=== PATIENT | female | born 1950 | race Hispanic/Latino ===

== ENCOUNTER 2018-02-24 22:38 | Inpatient (IN) | payer BC, MEDICARE, OTHER ==
[2018-02-24 22:41] VITALS: BMI 31.6
[2018-02-24] MEDS ORDERED: Nitroglycerin 50mg in D5W 50 MG/250 ML BOTTLE IV PRN (22:42)
[2018-02-24] MEDS ORDERED: Morphine 2 mg/ml ISec IVP STA ×2 (22:48→22:52)
[2018-02-24 22:51] LABS: BASO # 0.05 K/mm3 (0.0-2.0); BASO % 0.4 % (0.0-3.0); EOS # 0.2 (0.0-0.7); EOS % 1.3 % (1.5-5.0); GRAN # 3.76 (1.4-6.5); GRAN % 32.8 % (50.0-68.0); HEMOGLOBIN 16.1 g/dL (12.0-16.0); LYMPH # 6.7 (1.2-3.4); LYMPH % 58.4 % (22.0-35.0); MEAN CELL VOLUME 86.6 fl (80.0-105.0); MEAN CORPUSCULAR HEMOGLOBIN 29.1 pg (25.0-35.0); MEAN CORPUSCULAR HGB CONC 33.5 g/dl (31.0-37.0); MEAN PLATELET VOLUME 9.8 fl (7.0-11.0); MONO # 0.8 (0.1-0.6); MONO % 7.1 % (1.0-6.0); RBC 5.54 10^6/uL (3.5-6.1); RED CELL DISTRIBUTION WIDTH 13.2 % (11.5-14.5); WHITE BLOOD COUNT 11.5 10^3/uL (4.5-11.0)
[2018-02-24] MEDS ORDERED: Morphine 2 mg/ml ISec ONE (22:51)
[2018-02-24] MEDS ORDERED: Nitroglycerin 50mg in D5W 50 MG/250 ML BOTTLE IV ONE ×2 (22:52→23:09)
[2018-02-24 22:54] LABS: INR 0.95; PROTHROMBIN TIME 10.8 SECONDS (9.4-12.5)
[2018-02-24 22:59] LABS: ALB/GLOB RATIO 1.4 (1.1-1.8); ALBUMIN 4.5 g/dL (3.0-4.8); ALT/SGPT 39 U/L (7-56); AST/SGOT 36 U/L (14-36); BLOOD UREA NITROGEN 20 mg/dL (7-21); CALCIUM 10.2 mg/dL (8.4-10.5); GFR NON-AFRICAN AMERICAN > 60
[2018-02-24] MEDS ORDERED: Lidocaine 2% Inj (20ml) ONE (23:07)
--- NOTE | 2018-02-24 23:07 | ED PDOC ---
Arrival/HPI - General Chief Complaint: Chest Pain Time Seen by Provider: 02/24/18 22:41 Historian: Patient - Critical Care Critical Care Minutes: 30 minutes - History of Present Illness Narrative History of Present Illness (Text): 02/24/18 23:07 67 year female, who informs past medical history of only hypoglycemia, presents to the emergency department by EMS for possible code heart. Patient began to feel crushing chest discomfort 1 hour prior to arrival. Rhythm strips had shown probable anterior wall ST elevation. Patient was administered aspirin prior to arrival. Upon arrival patient was placed on academic services professional. Patient denies any drug use. Patient denies any Patient denies any fevers, chills, abdominal pain, nausea, vomiting, diarrhea, back pain, or any other complaints. Time/Duration: 1 hour Symptom Onset: Gradual Symptom Course: Unchanged Quality: Tightness Activities at Onset: Light Context: Home Past Medical History - Provider Review Nursing Documentation Reviewed: Yes - Psychiatric Hx Psychophysiologic Disorder: Yes Hx Anxiety: Yes Hx Substance Use: No Family/Social History - Physician Review Nursing Documentation Reviewed: Yes Family/Social History: No Known Family HX Smoking Status: Never Smoked Hx Alcohol Use: No Hx Substance Use: No Allergies/Home Meds Allergies/Adverse Reactions: Allergies azithromycin [From Zithromax Z-Herman] Allergy (Verified 02/24/18 22:42) DIZZINESS Home Medications: Home Meds Medication Instructions Recorded Confirmed RX: Unobtainable 02/24/18 02/24/18 Review of Systems - Physician Review All systems were reviewed & negative as marked: Yes - Review of Systems Constitutional: absent: Fevers, Night Sweats Cardiovascular: Chest Pain Gastrointestinal: absent: Abdominal Pain, Diarrhea, Nausea, Vomiting Endocrine: Diaphoresis Physical Exam Vital Signs Reviewed: Yes Vital Signs Temp Pulse Resp BP Pulse Ox 02/24/18 22:53 97.2 F L 59 L 20 144/61 98 02/24/18 22:44 60 18 136/73 100 Blood Pressure: Normal Pulse: Regular Respiratory Rate: Normal Appearance: Positive for: Well-Appearing, Non-Toxic, Comfortable Pain Distress: None Mental Status: Positive for: Alert and Oriented X 3 - Systems Exam Head: Present: Atraumatic, Normocephalic Pupils: Present: PERRL Extroacular Muscles: Present: EOMI Conjunctiva: Present: Normal Mouth: Present: Moist Mucous Membranes Neck: Present: Normal Range of Motion Respiratory/Chest: Present: Clear to Auscultation, Good Air Exchange. No: Respiratory Distress, Accessory Muscle Use Cardiovascular: Present: Regular Rate and Rhythm, Normal S1, S2. No: Murmurs Abdomen: No: Tenderness, Distention, Peritoneal Signs Back: Present: Normal Inspection Upper Extremity: Present: Normal Inspection. No: Cyanosis, Edema Lower Extremity: Present: Normal Inspection. No: Edema Neurological: Present: GCS=15, CN II-XII Intact, Speech Normal Skin: Present: Warm, Normal Color, Diaphoretic. No: Rashes Psychiatric: Present: Alert, Oriented x 3, Normal Insight, Normal Concentration Medical Decision Making ED Course and Treatment: 02/24/18 23:16 Impression: Differential Diagnosis included but are not limited to: Plan: -- EKG -- Brilinta -- Heparin -- Morphine -- Nitroglycerin -- O2 nasal -- Reassess and disposition Prior Visits: Notes and results from previous visits were reviewed. Progress Notes: 02/24/18 23:18 Patient had stat EKG which showed anterior wall injury with reciprocal changes, code heart was called immediately. Case was discussed with clay press operator recreation aide Dr Ayala. Dr Ayala recommended Brillinta and heparin and will come to hospital to bring patient to cardiac catheterization lab. House physician . is present with the medical doctor md. - Lab Interpretations Lab Results: PT 10.8 SECONDS (9.4-12.5) 02/24/18 22:48 INR 0.95 02/24/18 22:48 Total Bilirubin 0.8 mg/dL (0.2-1.3) 02/24/18 22:48 AST 36 U/L (14-36) 02/24/18 22:48 ALT 39 U/L (7-56) 02/24/18 22:48 Alkaline Phosphatase 106 U/L (38-126) 02/24/18 22:48 Total Protein 7.9 g/dL (5.8-8.3) 02/24/18 22:48 Albumin 4.5 g/dL (3.0-4.8) 02/24/18 22:48 Globulin 3.3 gm/dL 02/24/18 22:48 Albumin/Globulin Ratio 1.4 (1.1-1.8) 02/24/18 22:48 - RAD Interpretation Radiology Orders: 02/24/18 22:42 CHEST PORTABLE [RAD] Stat - Medication Orders Current Medication Orders: Nitroglycerin/Dextrose (Nitroglycerin 50 Mg/250 Ml D5w) 50 mg in 250 mls @ 3 mls/hr IV .Q24H PRN; Protocol PRN Reason: Pain, moderate (4-7) Discontinued Medications Heparin Sodium (Porcine) (Heparin) 4,000 units IV ONCE STA; Protocol Stop: 02/24/18 22:43 Morphine Sulfate (Morphine) 2 mg IVP STAT STA Stop: 02/24/18 22:49 Morphine Sulfate (Morphine) 2 mg IVP STAT STA Stop: 02/24/18 22:53 Ticagrelor (Brilinta) 180 mg PO STAT STA Stop: 02/24/18 22:51 - Scribe Statement The provider has reviewed the documentation as recorded by the Scribe Kofi Serrano Provider Scribe Attestation: All medical record entries made by the Scribe were at my direction and personally dictated by me. I have reviewed the chart and agree that the record accurately reflects my personal performance of the history, physical exam, medical decision making, and the department course for this patient. I have also personally directed, reviewed, and agree with the discharge instructions and disposition. Disposition/Present on Arrival - Present on Arrival Any Indicators Present on Arrival: No History of DVT/PE: No History of Uncontrolled Diabetes: No Urinary Catheter: No History of Decub. Ulcer: No History Surgical Site Infection Following: None - Disposition Have Diagnosis and Disposition been Completed?: Yes Diagnosis: Acute [place], STEMI (ST elevation myocardial infarction) Disposition: HOSPITALIZED Disposition Time: 22:58 Patient Plan: ICU Patient Problems: Current Active Problems Problem Status Onset Acute [place] Acute STEMI (ST elevation myocardial infarction) Acute Condition: GUARDED
[2018-02-24] MEDS ORDERED: Midazolam 2 MG/2 ML VIAL ONE ×2 (23:08→23:35)
[2018-02-24] MEDS ORDERED: Phenylephrine 10 mg/ml Inj ONE (23:08)
[2018-02-24] MEDS ORDERED: Iodixanol 320 MG/ML 100 ML BOTTLE IV ONE (23:09)
[2018-02-24] MEDS ORDERED: Heparin 2,000 ML IV ONE (23:09)
[2018-02-24] MEDS ORDERED: Iodixanol 320 MG/ML 200 ML BOTTLE IV ONE (23:09)
[2018-02-24] MEDS ORDERED: Iohexol 350mgl/ml 50 ML ONE (23:09)
[2018-02-24 23:11] LABS: TROPONIN I 0.02 ng/mL
--- NOTE | 2018-02-24 23:24 | CP.PCM.HP ---
<Liza Aponte - Last Filed: 02/25/18 00:22> History of Present Illness - History of Present Illness History of Present Illness: Please note patient's history is as per daughter as well as patient in acute distress at time of encounter Daughter: Teena : Maikel 67yo female PMHx hypoglycemia and anxiety BIBA with complaint of chest pain for 1 day worsening 1 hour prior to arrival to the ER. Patient's daughter reported the patient was complaining of mild URI symptoms the night prior for which she took Nyquil and Augmentin [left over from a nail infection]. Patient's continued to complain of some neck and throat pain throughout the day of admission and intermittent chest pain. The chest pain became significantly worse 1 hour DATA CENTER ENGINEER and patient reported feeling like there was an "elephant on her chest". Patient rated the pain 10/10 and described it as a heavy weight in the middle of her chest radiating up her neck. She had associated nausea with no emesis and was diaphoretic. EMS was called and patient took 4 pills of baby ASA prior to coming to the ER. Complete ROS unobtainable secondary to patient condition. In the ER stat EKG revealed anterior wall TX with reciprocal changes. Code HEART was called and team was activated. Cardiology Dr. Ayala recommended Brilinta 180mg and Heparin bolus 4000units. Patient was also given Morphine 2mg and started on Nitro gtt and rushed to nitriles lab technician. PMHx: hypoglycemia and anxiety PSurgHx: cholecystectomy 43years ago PHospitalization: none PER: for panic attack Meds: xanax 0.5 prn qd ALL: azithromycin FamHx: father [place] in his 60s; mother with skin cancer and hypothyroidism SocHx: remote tobacco use as a teenager; denies EtOH/drug use. Lives at home with . PMD: Kushal Present on Admission - Present on Admission Any Indicators Present on Admission: No Review of Systems - Review of Systems Systems not reviewed;Unavailable: Acuity of Condition Past Patient History - Past Social History Smoking Status: Never Smoked - PSYCHIATRIC Hx Psychophysiologic Disorder: Yes Hx Anxiety: Yes Hx Substance Use: No Meds Allergies/Adverse Reactions: Allergies Allergy/AdvReac Type Severity Reaction Status Date / Time azithromycin Allergy DIZZINESS Verified 02/24/18 22:42 [From Zithromax Z-Herman] Physical Exam - Constitutional Appears: In Acute Distress - Head Exam Head Exam: ATRAUMATIC, NORMAL INSPECTION, NORMOCEPHALIC - Eye Exam Eye Exam: EOMI, Normal appearance. absent: Conjunctival injection, Scleral icterus - ENT Exam ENT Exam: Mucous Membranes Dry - Respiratory Exam Respiratory Exam: NORMAL BREATHING PATTERN. absent: Accessory Muscle Use, Rales, Rhonchi, Wheezes, Respiratory Distress - Cardiovascular Exam Cardiovascular Exam: REGULAR RHYTHM, +S1, +S2 - GI/Abdominal Exam GI & Abdominal Exam: Soft. absent: Firm, Guarding, Rigid, Tenderness - Rectal Exam Rectal Exam: Deferred ( ) - Extremities Exam Extremities exam: Positive for: pedal pulses present. Negative for: pedal edema Additional comments: varicose veins b/l LE noted - Neurological Exam Neurological exam: Alert, Oriented x3 - Psychiatric Exam Psychiatric exam: Anxious - Skin Skin Exam: Diaphoretic, Intact Results - Vital Signs Recent Vital Signs: Last Vital Signs Temp 97.2 F L 02/24/18 22:53 Pulse 59 L 02/24/18 22:53 Resp 20 02/24/18 22:53 BP 144/61 02/24/18 22:53 Pulse Ox 98 02/24/18 22:53 - Labs Result Diagrams: 02/24/18 22:48 02/24/18 22:48 Labs: Laboratory Results - last 24 hr 02/24/18 02/24/18 02/24/18 22:48 22:48 22:48 WBC 11.5 H RBC 5.54 Hgb 16.1 H Hct 48.0 MCV 86.6 MCH 29.1 MCHC 33.5 RDW 13.2 Plt Count 246 MPV 9.8 Gran % 32.8 L Lymph % (Auto) 58.[address] [place] % (Auto) 7.1 H Eos % (Auto) 1.3 L Baso % (Auto) 0.4 Gran # 3.76 Lymph # (Auto) 6.[address] [place] # (Auto) 0.8 H Eos # (Auto) 0.2 Baso # (Auto) 0.05 PT 10.8 INR 0.95 Sodium 142 Potassium 3.3 L Chloride 106 Carbon Dioxide 26 Anion Gap 14 BUN 20 Creatinine 0.9 Est GFR ( Amer) > 60 Est GFR (Non-Af Amer) > 60 Random Glucose 122 H Calcium 10.2 Total Bilirubin 0.8 AST 36 ALT 39 Alkaline Phosphatase 106 Lactate Dehydrogenase 504 Total Creatine Kinase 40 Troponin I 0.02 Total Protein 7.9 Albumin 4.5 Globulin 3.3 Albumin/Globulin Ratio 1.4 Assessment & Plan - Assessment and Plan (Free Text) Assessment: 67yo female PMHx hypoglycemia and anxiety BIBA with complaint of chest pain for 1 day worsening 1 hour DATA CENTER ENGINEER. In the ER patient's EKG revealed anterior wall TX with reciprocal changes. Code HEART called and patient was rushed to [facility] lab technician. Patient had 2 JANE placed in LAD. Patient transferred to CCU for further management. Plan: Prior to cath patient received ASA 324mg, Brilinta 180mg, Heparin 4000units, Mo rphine 2mg and started on Nitro gtt. Postcath patient to be monitored closely in CCU. Patient started on ASA 81mg, Lipitor 80mg, Coreg 6.25mg bid, and Brilinta 90mg bid as per cardio. AM labs ordered for CBC, CMP, Mg, Phos, Lipid panel, HgbA1c, Thyroid studies. Echo ordered to f/u. Leukocytosis noted- likely reactionary. Will monitor cath site and b/l LE distal pulses. Continue NS@100 and Heart Healthy Diet ordered for AM. Patient's family was spoken to in great detail and all questions and concerns were addressed. Discussed with Dr. Mari Aponte PGY3 <Blair Guerra - Last Filed: 02/25/18 06:49> Results - Vital Signs Recent Vital Signs: Last Vital Signs Temp 968.3 F H 02/25/18 01:56 Pulse 88 02/25/18 02:00 Resp 13 02/25/18 01:20 BP 123/73 02/25/18 01:00 Pulse Ox 97 02/25/18 01:20 - Labs Result Diagrams: 02/25/18 05:25 02/24/18 22:48 Labs: Laboratory Results - last 24 hr 02/24/18 02/24/18 02/24/18 22:48 22:48 22:48 WBC 11.5 H RBC 5.54 Hgb 16.1 H Hct 48.0 MCV 86.6 MCH 29.1 MCHC 33.5 RDW 13.2 Plt Count 246 MPV 9.8 Gran % 32.8 L Lymph % (Auto) 58.[address] [place] % (Auto) 7.1 H Eos % (Auto) 1.3 L Baso % (Auto) 0.4 Gran # 3.76 Lymph # (Auto) 6.[address] [place] # (Auto) 0.8 H Eos # (Auto) 0.2 Baso # (Auto) 0.05 PT 10.8 INR 0.95 Sodium 142 Potassium 3.3 L Chloride 106 Carbon Dioxide 26 Anion Gap 14 BUN 20 Creatinine 0.9 Est GFR ( Amer) > 60 Est GFR (Non-Af Amer) > 60 Random Glucose 122 H Calcium 10.2 Total Bilirubin 0.8 AST 36 ALT 39 Alkaline Phosphatase 106 Lactate Dehydrogenase 504 Total Creatine Kinase 40 Troponin I 0.02 Total Protein 7.9 Albumin 4.5 Globulin 3.3 Albumin/Globulin Ratio 1.4 02/25/18 05:25 WBC 10.6 RBC 5.05 Hgb 14.3 Hct 44.1 MCV 87.3 MCH 28.3 MCHC 32.4 RDW 13.5 Plt Count 213 MPV 9.9 Gran % 87.2 H Lymph % (Auto) 7.[address] [place] % (Auto) 5.4 Eos % (Auto) 0.1 L Baso % (Auto) 0.1 Gran # 9.27 H Lymph # (Auto) 0.[address] [place] # (Auto) 0.6 Eos # (Auto) 0.0 Baso # (Auto) 0.01 PT INR Sodium Potassium Chloride Carbon Dioxide Anion Gap BUN Creatinine Est GFR ( Amer) Est GFR (Non-Af Amer) Random Glucose Calcium Total Bilirubin AST ALT Alkaline Phosphatase Lactate Dehydrogenase Total Creatine Kinase Troponin I Total Protein Albumin Globulin Albumin/Globulin Ratio Attending/Attestation - Attestation I have personally seen and examined this patient.: Yes I have fully participated in the care of the patient.: Yes I have reviewed all pertinent clinical information: Yes
[2018-02-24] MEDS ORDERED: Eptifibatide 20 mg/10mL Inj IVP ONE ×2 (23:51→23:59)
[2018-02-25] MEDS ORDERED: Sodium Chloride 0.9% 1,000 ML IV SCH ×3 (00:15→14:52)
[2018-02-25] MEDS ORDERED: Potassium Chloride 20 mEq ER Tab PO ONE (02:34)
--- NOTE | 2018-02-25 02:45 | CARDCATH ---
PROCEDURE DATE: 02/24/2018 CARDIAC CATHETERIZATION INTERVENTION REPORT PROCEDURES: 1. Selective left and right coronary angiography. 2. Left ventriculography. 3. PCI of proximal LAD with drug-eluting stents. 4. Intracoronary nitroglycerin infusion. 5. Right femoral arteriography. 6. Angio-Seal deployment. HISTORY: This is a 67-year-old woman with a history of hyperlipidemia, who developed severe chest pain shortly before admission. Upon arrival, she had ST elevations anteriorly and emergency catheterization was advised. INDICATION: Acute myocardial infarction. FINDINGS: HEMODYNAMICS: Aortic pressure was 120/70 with left ventricular pressure of 120/20. CORONARY ANATOMY: 1. Left mainstem was normal. 2. Left anterior descending artery was occluded proximally. 3. The left circumflex artery had diffuse 40% stenosis in its proximal mid segment. 4. The right coronary artery was large and dominant with mild irregularities. LEFT VENTRICULOGRAPHY: A hand injection was performed in the left ventricle revealing evidence of severe distal anterolateral and apical hypokinesis with an overall ejection fraction of 45%. CORONARY INTERVENTION: A total of 7000 units of intravenous heparin was administered and AST was greater than 280 seconds during the procedure. The lesion in the LAD was successfully crossed with use of a [place] wire. Following this, intial balloon inflation was performed with a 2.5 x 12 mm balloon. With this, there was roman catholic of distal flow. There was evidence of diffuse disease throughout the mid-segment of the vessel. The balloon was removed and a 3.0 x 15 m Resolute [place] drug-eluting stent was advanced into the early mid-segment of the LAD. This was inflated to 14 atmospheres. Following this, the remainder residual lesion was just proximal to the stent and this was treated with placement of a 3.5 x 12 mm Resolute [place] drug-eluting stent. This was inflated to 14 atmospheres. The balloon was then advanced into the overlapped segment of the two stents and this was inflated at 16 atmospheres for 30 seconds. The previous inflations were 40-45 seconds. Intracoronary nitroglycerin was infused as the lesions in the mid-vessel appeared somewhat worsened after initial stent implant. Following nitroglycerin, there appeared to be multiple 40-50% lesions with no evidence of thrombus or high-grade obstructive stenosis. Two boluses of IV Integrilin were administered. RIGHT FEMORAL ARTERIOGRAPHY: Right femoral arteriogram was performed in the TAMAYO projection. This revealed no evidence of significant disease and appropriate level of arterial puncture. The puncture site was then closed with deployment of an Angio-Seal device. CONCLUSIONS: 1. Acute anterior myocardial infarction due to proximal left anterior descending occlusion associated with drug-eluting stent placement as described above. 2. 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 3. Moderately reduced left ventricular systolic function. RECOMMENDATIONS: Aspirin and Brilinta therapy will be continued for at least 1 year. Beta-ling and statin therapy will be initiated as well. Angiotensin receptor ling will be added to the regimen as blood pressure allows. Serial enzymes and electrocardiograms will be obtained. Richy Melgoza MD cc: Brenda Fatima MD MTDD
[2018-02-25 06:43] LABS: BASO # 0.01 K/mm3 (0.0-2.0); BASO % 0.1 % (0.0-3.0); EOS % 0.1 % (1.5-5.0); GRAN # 9.27 (1.4-6.5); GRAN % 87.2 % (50.0-68.0); HEMOGLOBIN 14.3 g/dL (12.0-16.0); LYMPH # 0.8 (1.2-3.4); LYMPH % 7.2 % (22.0-35.0); MEAN CELL VOLUME 87.3 fl (80.0-105.0); MEAN CORPUSCULAR HEMOGLOBIN 28.3 pg (25.0-35.0); MEAN CORPUSCULAR HGB CONC 32.4 g/dl (31.0-37.0); MEAN PLATELET VOLUME 9.9 fl (7.0-11.0); MONO # 0.6 (0.1-0.6); MONO % 5.4 % (1.0-6.0); RBC 5.05 10^6/uL (3.5-6.1); RED CELL DISTRIBUTION WIDTH 13.5 % (11.5-14.5); WHITE BLOOD COUNT 10.6 10^3/uL (4.5-11.0)
[2018-02-25 06:51] LABS: ALB/GLOB RATIO 1.4 (1.1-1.8); ALBUMIN 4.3 g/dL (3.0-4.8); ALT/SGPT 111 U/L (7-56); AST/SGOT 617 U/L (14-36); BLOOD UREA NITROGEN 18 mg/dL (7-21); CALCIUM 9.5 mg/dL (8.4-10.5); GFR NON-AFRICAN AMERICAN > 60; HDL CHOLESTEROL 46 mg/dL (29-60)
[2018-02-25 06:55] LABS: LDL CHOLESTEROL 132 mg/dL (0-129)
[2018-02-25 07:01] LABS: FREE T4 1.09 ng/dL (0.78-2.19)
--- NOTE | 2018-02-25 10:06 | CP.CCUPN ---
<Kevin Haley - Last Filed: 02/25/18 11:54> CCU Subjective - Physician Review Subjective (Free Text): 02/25/18 11:41 Genaro Haley PGY2 - ICU Progress Note Patient seen and examined this AM. Patient indicates mild chest discomfort periodically and nausea. She reports minimal pain at cath site. She denies shortness of breath, abdominal pain, fever, chills, vomiting. Patient to be moved to chair today. CCU Objective - Vital Signs / Intake & Output Vital Signs (Last 4 hours): Vital Signs Temp Pulse Resp BP Pulse Ox 02/25/18 09:30 87 129/74 02/25/18 09:00 91 H 15 95 02/25/18 08:11 97.5 F L 02/25/18 08:01 95 H 20 139/94 H 93 L 02/25/18 08:00 7 L 92 L 02/25/18 07:50 84 95 02/25/18 07:45 89 20 146/81 93 L 02/25/18 07:40 95 H 19 95 02/25/18 07:31 89 20 143/85 95 02/25/18 07:30 88 93 L 02/25/18 07:20 87 19 95 02/25/18 07:16 88 16 141/84 96 02/25/18 07:10 88 6 L 95 02/25/18 07:00 88 16 140/79 95 02/25/18 06:50 89 19 95 02/25/18 06:45 85 21 143/81 95 02/25/18 06:40 89 12 95 02/25/18 06:31 93 H 12 143/86 96 02/25/18 06:30 88 18 96 02/25/18 06:20 88 19 95 02/25/18 06:16 87 16 143/84 96 02/25/18 06:10 87 96 Intake and Output (Last 8hrs): Intake & Output 02/24/18 02/25/18 02/25/18 22:59 06:59 14:59 Intake Total 600 Output Total 800 Balance -200 Weight 195 lb 12.8 oz 195 lb 12.8 oz Intake: IV 600 Right Forearm 600 Output: Urine 800 Urine, Voided 800 - Physical Exam Head: Positive for: Atraumatic, Normocephalic Pupils: Positive for: PERRL Extroacular Muscles: Positive for: EOMI Conjunctiva: Positive for: Normal Mouth: Positive for: Moist Mucous Membranes Neck: Positive for: Normal Range of Motion Respiratory/Chest: Positive for: Clear to Auscultation, Good Air Exchange. Negative for: Respiratory Distress, Accessory Muscle Use Cardiovascular: Positive for: Regular Rate and Rhythm, Normal S1, S2. Negative for: Murmurs Abdomen: Negative for: Tenderness, Distention, Peritoneal Signs Back: Positive for: Normal Inspection Upper Extremity: Positive for: Normal Inspection. Negative for: Cyanosis, Edema Lower Extremity: Positive for: Normal Inspection, Tenderness (mild around cath site ), Other (right lower extremity groin region without hematoma, swelling and minimal ecchymosis, ). Negative for: Edema Neurological: Positive for: GCS=15, CN II-XII Intact, Speech Normal Skin: Positive for: Warm, Normal Color, Diaphoretic. Negative for: Rashes Psychiatric: Positive for: Alert, Oriented x 3, Normal Insight, Normal Concentration - Medications Active Medications: Active Medications Generic Name Dose Route Start Last Admin Trade Name Freq PRN Reason Stop Dose Admin Aspirin 81 mg 02/25/18 10:02/25/18 09:31 Aspirin Chewable PO 81 mg DAILY CHERELLE Administration Atorvastatin Calcium 80 mg 02/25/18 17:00 Lipitor PO DIN CHERELLE Carvedilol 6.25 mg 02/25/18 10:00 02/25/18 09:30 Coreg PO 6.25 mg BID CHERELLE Administration Docusate Sodium 100 mg 02/25/18 10:00 02/25/18 09:29 Colace PO 100 mg BID CHERELLE Administration Nitroglycerin/Dextrose 50 mg in 250 mls @ 3 mls/hr 02/24/18 22:42 02/24/18 23:51 Nitroglycerin 50 Mg/250 Ml D5w IV 10 mcg/min .Q24H PRN 3 mls/hr Pain, moderate (4-7) Administration Protocol 10 MCG/MIN Ondansetron HCl 4 mg 02/25/18 07:47 02/25/18 07:58 Zofran Inj IVP 4 mg Q6H PRN Administration Nausea/Vomiting Ticagrelor 90 mg 02/25/18 10:00 02/25/18 09:29 Brilinta PO 90 mg BID CHERELLE Administration - Patient Studies Lab Studies: Lab Studies 02/25/18 02/25/18 02/25/18 Range/Units 05:25 05:25 05:25 WBC 10.6 (4.5-11.0) 10^3/uL RBC 5.05 (3.5-6.1) 10^6/uL Hgb 14.3 (12.0-16.0) g/dL Hct 44.1 (36.0-48.0) % MCV 87.3 (80.0-105.0) fl MCH 28.3 (25.0-35.0) pg MCHC 32.4 (31.0-37.0) g/dl RDW 13.5 (11.5-14.5) % Plt Count 213 (120.0-450.0) 10^3/uL MPV 9.9 (7.0-11.0) fl Gran % 87.2 H (50.0-68.0) % Lymph % (Auto) 7.2 L (22.0-35.0) % Webster % (Auto) 5.4 (1.0-6.0) % Eos % (Auto) 0.1 L (1.5-5.0) % Baso % (Auto) 0.1 (0.0-3.0) % Gran # 9.27 H (1.4-6.5) Lymph # (Auto) 0.8 L (1.2-3.4) Webster # (Auto) 0.6 (0.1-0.6) Eos # (Auto) 0.0 (0.0-0.7) Baso # (Auto) 0.01 (0.0-2.0) K/mm3 PT (9.4-12.5) SECONDS INR Sodium 141 (132-148) mmol/L Potassium 5.1 H (3.6-5.0) mmol/L Chloride 107 (98-107) mmol/L Carbon Dioxide 29 (21-33) mmol/L Anion Gap 10 (10-20) BUN 18 (7-21) mg/dL Creatinine 0.8 (0.7-1.2) mg/dl Est GFR ( Amer) > 60 Est GFR (Non-Af Amer) > 60 Random Glucose 136 H (70-110) mg/dL Calcium 9.5 (8.4-10.5) mg/dL Phosphorus 3.3 (2.5-4.5) mg/dL Magnesium 2.1 (1.7-2.2) mg/dL Total Bilirubin 0.6 (0.2-1.3) mg/dL AST 617 H D (14-36) U/L ALT 111 H (7-56) U/L Alkaline Phosphatase 90 (38-126) U/L Lactate Dehydrogenase (333-699) U/L Total Creatine Kinase (35-230) U/L Troponin I ng/mL Total Protein 7.5 (5.8-8.3) g/dL Albumin 4.3 (3.0-4.8) g/dL Globulin 3.2 gm/dL Albumin/Globulin Ratio 1.4 (1.1-1.8) Triglycerides 224 H (35-160) mg/dL Cholesterol 229 H (130-200) mg/dL LDL Cholesterol Direct 132 H (0-129) mg/dL HDL Cholesterol 46 (29-60) mg/dL Free T4 1.09 (0.78-2.19) ng/dL TSH 3rd Generation 1.01 (0.46-4.68) mIU/mL 02/24/18 02/24/18 02/24/18 Range/Units 22:48 22:48 22:48 WBC 11.5 H (4.5-11.0) 10^3/uL RBC 5.54 (3.5-6.1) 10^6/uL Hgb 16.1 H (12.0-16.0) g/dL Hct 48.0 (36.0-48.0) % MCV 86.6 (80.0-105.0) fl MCH 29.1 (25.0-35.0) pg MCHC 33.5 (31.0-37.0) g/dl RDW 13.2 (11.5-14.5) % Plt Count 246 (120.0-450.0) 10^3/uL MPV 9.8 (7.0-11.0) fl Gran % 32.8 L (50.0-68.0) % Lymph % (Auto) 58.4 H (22.0-35.0) % Webster % (Auto) 7.1 H (1.0-6.0) % Eos % (Auto) 1.3 L (1.5-5.0) % Baso % (Auto) 0.4 (0.0-3.0) % Gran # 3.76 (1.4-6.5) Lymph # (Auto) 6.7 H (1.2-3.4) Webster # (Auto) 0.8 H (0.1-0.6) Eos # (Auto) 0.2 (0.0-0.7) Baso # (Auto) 0.05 (0.0-2.0) K/mm3 PT 10.8 (9.4-12.5) SECONDS INR 0.95 Sodium 142 (132-148) mmol/L Potassium 3.3 L (3.6-5.0) mmol/L Chloride 106 (98-107) mmol/L Carbon Dioxide 26 (21-33) mmol/L Anion Gap 14 (10-20) BUN 20 (7-21) mg/dL Creatinine 0.9 (0.7-1.2) mg/dl Est GFR ( Amer) > 60 Est GFR (Non-Af Amer) > 60 Random Glucose 122 H (70-110) mg/dL Calcium 10.2 (8.4-10.5) mg/dL Phosphorus (2.5-4.5) mg/dL Magnesium (1.7-2.2) mg/dL Total Bilirubin 0.8 (0.2-1.3) mg/dL AST 36 (14-36) U/L ALT 39 (7-56) U/L Alkaline Phosphatase 106 (38-126) U/L Lactate Dehydrogenase 504 (333-699) U/L Total Creatine Kinase 40 (35-230) U/L Troponin I 0.02 ng/mL Total Protein 7.9 (5.8-8.3) g/dL Albumin 4.5 (3.0-4.8) g/dL Globulin 3.3 gm/dL Albumin/Globulin Ratio 1.4 (1.1-1.8) Triglycerides (35-160) mg/dL Cholesterol (130-200) mg/dL LDL Cholesterol Direct (0-129) mg/dL HDL Cholesterol (29-60) mg/dL Free T4 (0.78-2.19) ng/dL TSH 3rd Generation (0.46-4.68) mIU/mL Laboratory Results - last 24 hr 02/24/18 02/24/18 02/24/18 22:48 22:48 22:48 WBC 11.5 H RBC 5.54 Hgb 16.1 H Hct 48.0 MCV 86.6 MCH 29.1 MCHC 33.5 RDW 13.2 Plt Count 246 MPV 9.8 Gran % 32.8 L Lymph % (Auto) 58.4 H Webster % (Auto) 7.1 H Eos % (Auto) 1.3 L Baso % (Auto) 0.4 Gran # 3.76 Lymph # (Auto) 6.7 H Webster # (Auto) 0.8 H Eos # (Auto) 0.2 Baso # (Auto) 0.05 PT 10.8 INR 0.95 Sodium 142 Potassium 3.3 L Chloride 106 Carbon Dioxide 26 Anion Gap 14 BUN 20 Creatinine 0.9 Est GFR ( Amer) > 60 Est GFR (Non-Af Amer) > 60 Random Glucose 122 H Calcium 10.2 Phosphorus Magnesium Total Bilirubin 0.8 AST 36 ALT 39 Alkaline Phosphatase 106 Lactate Dehydrogenase 504 Total Creatine Kinase 40 Troponin I 0.02 Total Protein 7.9 Albumin 4.5 Globulin 3.3 Albumin/Globulin Ratio 1.4 Triglycerides Cholesterol LDL Cholesterol Direct HDL Cholesterol Free T4 TSH 3rd Generation 02/25/18 02/25/18 02/25/18 05:25 05:25 05:25 WBC 10.6 RBC 5.05 Hgb 14.3 Hct 44.1 MCV 87.3 MCH 28.3 MCHC 32.4 RDW 13.5 Plt Count 213 MPV 9.9 Gran % 87.2 H Lymph % (Auto) 7.2 L Webster % (Auto) 5.4 Eos % (Auto) 0.1 L Baso % (Auto) 0.1 Gran # 9.27 H Lymph # (Auto) 0.8 L Webster # (Auto) 0.6 Eos # (Auto) 0.0 Baso # (Auto) 0.01 PT INR Sodium 141 Potassium 5.1 H Chloride 107 Carbon Dioxide 29 Anion Gap 10 BUN 18 Creatinine 0.8 Est GFR ( Amer) > 60 Est GFR (Non-Af Amer) > 60 Random Glucose 136 H Calcium 9.5 Phosphorus 3.3 Magnesium 2.1 Total Bilirubin 0.6 AST 617 H D ALT 111 H Alkaline Phosphatase 90 Lactate Dehydrogenase Total Creatine Kinase Troponin I Total Protein 7.5 Albumin 4.3 Globulin 3.2 Albumin/Globulin Ratio 1.4 Triglycerides 224 H Cholesterol 229 H LDL Cholesterol Direct 132 H HDL Cholesterol 46 Free T4 1.09 TSH 3rd Generation 1.01 EKG/Cardiology Studies: Cardiology / EKG Studies 02/24/18 22:42 ELECTROCARDIOGRAM Stat Comment: Reason For Exam: chest pain 02/24/18 23:03 ELECTROCARDIOGRAM Stat Comment: Reason For Exam: chest pain 02/25/18 00:11 ELECTROCARDIOGRAM Urgent Comment: 12 lead EKG upon arrival in unit Reason For Exam: post ptca 02/25/18 00:15 ELECTROCARDIOGRAM DAILY Comment: Reason For Exam: chest pain 02/26/18 00:15 ELECTROCARDIOGRAM DAILY Comment: Reason For Exam: chest pain Review of Systems - Review of Systems All systems: reviewed and no additional remarkable complaints except (as mentioned in HPI) Critical Care Progress Note - Nutrition Nutrition: Nutrition Category Date Time Status Heart Healthy Diet [DIET] Diets 02/25/18 Breakfast Active Assessment/Plan - Assessment and Plan (Free Text) Assessment: 67 year old female with past medical history of hypoglycemia and anxiety who presented with severe chest pain 1 hour in onset, admitted and taken for LHC with Dr. 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 Plan: Neuro: AAOx3 Monitor mentation Cardio: Acute anterior KS -LHC showing LAD and LCA disease, PCIx2 of LAD -EF 45% -ASA, Brillinta, coreg BID, Lipitor -CLYDE or ARB as tolerated -Cardiology consulted and following HLD (TG 224, CH 220, LDL 132) -Lipitor -HHD Pulm: -Maintain SaO2 >92% -Supplemental O2 as needed Renal: -Maintain euvolemia, replete electrolytes as needed Episode of urinary retention -Straight cath once with 700 mL UOP -Cont to monitor GI: Elevated LFT s/p cath -AST 617 ALT 111 -LFT wnl on admission -Etiology possibly secondary to hypovolemic 2/2 acute KS -IV zofran 4mg Q6H PRN -GI ppx -HHD ID: Afebrile, mild leukocytosis likely stress related Psych: Anxiety -Continue to monitor GI/DVT ppx -Protonix -Heparin Patient seen, case and plan discussed with attending Dr. Pedraza <Noris Pedraza - Last Filed: 02/25/18 18:04> CCU Objective - Vital Signs / Intake & Output Vital Signs (Last 4 hours): Vital Signs Temp Pulse Resp BP Pulse Ox 02/25/18 17:14 83 146/75 02/25/18 16:01 77 17 153/86 H 97 02/25/18 16:00 97.7 F 74 17 97 02/25/18 15:01 78 19 159/77 H 97 02/25/18 15:00 76 19 95 Intake and Output (Last 8hrs): Intake & Output 02/25/18 02/25/18 02/25/18 06:59 14:59 22:59 Intake Total 600 Output Total 800 Balance -200 Weight 88.813 kg Intake: IV 600 Right Forearm 600 Output: Urine 800 Urine, Voided 800 - Medications Active Medications: Active Medications Generic Name Dose Route Start Last Admin Trade Name Freq PRN Reason Stop Dose Admin Aspirin 81 mg 02/25/18 10:00 02/25/18 09:31 Aspirin Chewable PO 81 mg DAILY CHERELLE Administration Atorvastatin Calcium 80 mg 02/25/18 17:00 Lipitor PO DIN CHERELLE Carvedilol 6.25 mg 02/25/18 10:00 02/25/18 17:14 Coreg PO 6.25 mg BID CHERELLE Administration Docusate Sodium 100 mg 02/25/18 10:00 02/25/18 17:14 Colace PO 100 mg BID CHERELLE Administration Famotidine 20 mg 02/26/18 10:00 Pepcid IVP DAILY CHERELLE Nitroglycerin/Dextrose 50 mg in 250 mls @ 3 mls/hr 02/24/18 22:42 02/24/18 23:51 Nitroglycerin 50 Mg/250 Ml D5w IV 10 mcg/min .Q24H PRN 3 mls/hr Pain, moderate (4-7) Administration Protocol 10 MCG/MIN Sodium Chloride 1,000 mls @ 75 mls/hr 02/25/18 14:52 02/25/18 14:15 Sodium Chloride 0.9% IV 02/25/18 23:00 75 mls/hr .[id number] CHERELLE Administration Ondansetron HCl 4 mg 02/25/18 18:00 02/25/18 17:18 Zofran Inj IVP 4 mg Q6H PRN Administration Nausea/Vomiting Ticagrelor 90 mg 02/25/18 10:00 02/25/18 17:14 Brilinta PO 90 mg BID CHERELLE Administration - Patient Studies Lab Studies: Lab Studies 02/25/18 02/25/18 02/25/18 Range/Units 13:00 05:25 05:25 WBC (4.5-11.0) 10^3/uL RBC (3.5-6.1) 10^6/uL Hgb (12.0-16.0) g/dL Hct (36.0-48.0) % MCV (80.0-105.0) fl MCH (25.0-35.0) pg MCHC (31.0-37.0) g/dl RDW (11.5-14.5) % Plt Count (120.0-450.0) 10^3/uL MPV (7.0-11.0) fl Gran % (50.0-68.0) % Lymph % (Auto) (22.0-35.0) % Webster % (Auto) (1.0-6.0) % Eos % (Auto) (1.5-5.0) % Baso % (Auto) (0.0-3.0) % Gran # (1.4-6.5) Lymph # (Auto) (1.2-3.4) Webster # (Auto) (0.1-0.6) Eos # (Auto) (0.0-0.7) Baso # (Auto) (0.0-2.0) K/mm3 PT (9.4-12.5) SECONDS INR Sodium (132-148) mmol/L Potassium (3.6-5.0) mmol/L Chloride (98-107) mmol/L Carbon Dioxide (21-33) mmol/L Anion Gap (10-20) BUN (7-21) mg/dL Creatinine (0.7-1.2) mg/dl Est GFR ( Amer) Est GFR (Non-Af Amer) Random Glucose (70-110) mg/dL Hemoglobin A1c 5.3 (4.2-6.5) % Calcium (8.4-10.5) mg/dL Phosphorus (2.5-4.5) mg/dL Magnesium (1.7-2.2) mg/dL Total Bilirubin (0.2-1.3) mg/dL AST (14-36) U/L ALT (7-56) U/L Alkaline Phosphatase (38-126) U/L Lactate Dehydrogenase (333-699) U/L Total Creatine Kinase (35-230) U/L Troponin I 107.00 H* D ng/mL Total Protein (5.8-8.3) g/dL Albumin (3.0-4.8) g/dL Globulin gm/dL Albumin/Globulin Ratio (1.1-1.8) Triglycerides (35-160) mg/dL Cholesterol (130-200) mg/dL LDL Cholesterol Direct (0-129) mg/dL HDL Cholesterol (29-60) mg/dL Free T4 1.09 (0.78-2.19) ng/dL TSH 3rd Generation 1.01 (0.46-4.68) mIU/mL 02/25/18 02/25/18 02/24/18 Range/Units 05:25 05:25 22:48 WBC 10.6 (4.5-11.0) 10^3/uL RBC 5.05 (3.5-6.1) 10^6/uL Hgb 14.3 (12.0-16.0) g/dL Hct 44.1 (36.0-48.0) % MCV 87.3 (80.0-105.0) fl MCH 28.3 (25.0-35.0) pg MCHC 32.4 (31.0-37.0) g/dl RDW 13.5 (11.5-14.5) % Plt Count 213 (120.0-450.0) 10^3/uL MPV 9.9 (7.0-11.0) fl Gran % 87.2 H (50.0-68.0) % Lymph % (Auto) 7.2 L (22.0-35.0) % Webster % (Auto) 5.4 (1.0-6.0) % Eos % (Auto) 0.1 L (1.5-5.0) % Baso % (Auto) 0.1 (0.0-3.0) % Gran # 9.27 H (1.4-6.5) Lymph # (Auto) 0.8 L (1.2-3.4) Webster # (Auto) 0.6 (0.1-0.6) Eos # (Auto) 0.0 (0.0-0.7) Baso # (Auto) 0.01 (0.0-2.0) K/mm3 PT (9.4-12.5) SECONDS INR Sodium 141 142 (132-148) mmol/L Potassium 5.1 H 3.3 L (3.6-5.0) mmol/L Chloride 107 106 (98-107) mmol/L Carbon Dioxide 29 26 (21-33) mmol/L Anion Gap 10 14 (10-20) BUN 18 20 (7-21) mg/dL Creatinine 0.8 0.9 (0.7-1.2) mg/dl Est GFR ( Amer) > 60 > 60 Est GFR (Non-Af Amer) > 60 > 60 Random Glucose 136 H 122 H (70-110) mg/dL Hemoglobin A1c (4.2-6.5) % Calcium 9.5 10.2 (8.4-10.5) mg/dL Phosphorus 3.3 (2.5-4.5) mg/dL Magnesium 2.1 (1.7-2.2) mg/dL Total Bilirubin 0.6 0.8 (0.2-1.3) mg/dL AST 617 H D 36 (14-36) U/L ALT 111 H 39 (7-56) U/L Alkaline Phosphatase 90 106 (38-126) U/L Lactate Dehydrogenase 504 (333-699) U/L Total Creatine Kinase 40 (35-230) U/L Troponin I 0.02 ng/mL Total Protein 7.5 7.9 (5.8-8.3) g/dL Albumin 4.3 4.5 (3.0-4.8) g/dL Globulin 3.2 3.3 gm/dL Albumin/Globulin Ratio 1.4 1.4 (1.1-1.8) Triglycerides 224 H (35-160) mg/dL Cholesterol 229 H (130-200) mg/dL LDL Cholesterol Direct 132 H (0-129) mg/dL HDL Cholesterol 46 (29-60) mg/dL Free T4 (0.78-2.19) ng/dL TSH 3rd Generation (0.46-4.68) mIU/mL 02/24/18 02/24/18 Range/Units 22:48 22:48 WBC 11.5 H (4.5-11.0) 10^3/uL RBC 5.54 (3.5-6.1) 10^6/uL Hgb 16.1 H (12.0-16.0) g/dL Hct 48.0 (36.0-48.0) % MCV 86.6 (80.0-105.0) fl MCH 29.1 (25.0-35.0) pg MCHC 33.5 (31.0-37.0) g/dl RDW 13.2 (11.5-14.5) % Plt Count 246 (120.0-450.0) 10^3/uL MPV 9.8 (7.0-11.0) fl Gran % 32.8 L (50.0-68.0) % Lymph % (Auto) 58.4 H (22.0-35.0) % Webster % (Auto) 7.1 H (1.0-6.0) % Eos % (Auto) 1.3 L (1.5-5.0) % Baso % (Auto) 0.4 (0.0-3.0) % Gran # 3.76 (1.4-6.5) Lymph # (Auto) 6.7 H (1.2-3.4) Webster # (Auto) 0.8 H (0.1-0.6) Eos # (Auto) 0.2 (0.0-0.7) Baso # (Auto) 0.05 (0.0-2.0) K/mm3 PT 10.8 (9.4-12.5) SECONDS INR 0.95 Sodium (132-148) mmol/L Potassium (3.6-5.0) mmol/L Chloride (98-107) mmol/L Carbon Dioxide (21-33) mmol/L Anion Gap (10-20) BUN (7-21) mg/dL Creatinine (0.7-1.2) mg/dl Est GFR ( Amer) Est GFR (Non-Af Amer) Random Glucose (70-110) mg/dL Hemoglobin A1c (4.2-6.5) % Calcium (8.4-10.5) mg/dL Phosphorus (2.5-4.5) mg/dL Magnesium (1.7-2.2) mg/dL Total Bilirubin (0.2-1.3) mg/dL AST (14-36) U/L ALT (7-56) U/L Alkaline Phosphatase (38-126) U/L Lactate Dehydrogenase (333-699) U/L Total Creatine Kinase (35-230) U/L Troponin I ng/mL Total Protein (5.8-8.3) g/dL Albumin (3.0-4.8) g/dL Globulin gm/dL Albumin/Globulin Ratio (1.1-1.8) Triglycerides (35-160) mg/dL Cholesterol (130-200) mg/dL LDL Cholesterol Direct (0-129) mg/dL HDL Cholesterol (29-60) mg/dL Free T4 (0.78-2.19) ng/dL TSH 3rd Generation (0.46-4.68) mIU/mL Laboratory Results - last 24 hr 02/24/18 02/24/18 02/24/18 22:48 22:48 22:48 WBC 11.5 H RBC 5.54 Hgb 16.1 H Hct 48.0 MCV 86.6 MCH 29.1 MCHC 33.5 RDW 13.2 Plt Count 246 MPV 9.8 Gran % 32.8 L Lymph % (Auto) 58.4 H Webster % (Auto) 7.1 H Eos % (Auto) 1.3 L Baso % (Auto) 0.4 Gran # 3.76 Lymph # (Auto) 6.7 H Webster # (Auto) 0.8 H Eos # (Auto) 0.2 Baso # (Auto) 0.05 PT 10.8 INR 0.95 Sodium 142 Potassium 3.3 L Chloride 106 Carbon Dioxide 26 Anion Gap 14 BUN 20 Creatinine 0.9 Est GFR ( Amer) > 60 Est GFR (Non-Af Amer) > 60 Random Glucose 122 H Hemoglobin A1c Calcium 10.2 Phosphorus Magnesium Total Bilirubin 0.8 AST 36 ALT 39 Alkaline Phosphatase 106 Lactate Dehydrogenase 504 Total Creatine Kinase 40 Troponin I 0.02 Total Protein 7.9 Albumin 4.5 Globulin 3.3 Albumin/Globulin Ratio 1.4 Triglycerides Cholesterol LDL Cholesterol Direct HDL Cholesterol Free T4 TSH 3rd Generation 02/25/18 02/25/18 02/25/18 05:25 05:25 05:25 WBC 10.6 RBC 5.05 Hgb 14.3 Hct 44.1 MCV 87.3 MCH 28.3 MCHC 32.4 RDW 13.5 Plt Count 213 MPV 9.9 Gran % 87.2 H Lymph % (Auto) 7.2 L Webster % (Auto) 5.4 Eos % (Auto) 0.1 L Baso % (Auto) 0.1 Gran # 9.27 H Lymph # (Auto) 0.8 L Webster # (Auto) 0.6 Eos # (Auto) 0.0 Baso # (Auto) 0.01 PT INR Sodium 141 Potassium 5.1 H Chloride 107 Carbon Dioxide 29 Anion Gap 10 BUN 18 Creatinine 0.8 Est GFR ( Amer) > 60 Est GFR (Non-Af Amer) > 60 Random Glucose 136 H Hemoglobin A1c 5.3 Calcium 9.5 Phosphorus 3.3 Magnesium 2.1 Total Bilirubin 0.6 AST 617 H D ALT 111 H Alkaline Phosphatase 90 Lactate Dehydrogenase Total Creatine Kinase Troponin I Total Protein 7.5 Albumin 4.3 Globulin 3.2 Albumin/Globulin Ratio 1.4 Triglycerides 224 H Cholesterol 229 H LDL Cholesterol Direct 132 H HDL Cholesterol 46 Free T4 TSH 3rd Generation 02/25/18 02/25/18 05:25 13:00 WBC RBC Hgb Hct MCV MCH MCHC RDW Plt Count MPV Gran % Lymph % (Auto) Webster % (Auto) Eos % (Auto) Baso % (Auto) Gran # Lymph # (Auto) Webster # (Auto) Eos # (Auto) Baso # (Auto) PT INR Sodium Potassium Chloride Carbon Dioxide Anion Gap BUN Creatinine Est GFR ( Amer) Est GFR (Non-Af Amer) Random Glucose Hemoglobin A1c Calcium Phosphorus Magnesium Total Bilirubin AST ALT Alkaline Phosphatase Lactate Dehydrogenase Total Creatine Kinase Troponin I 107.00 H* D Total Protein Albumin Globulin Albumin/Globulin Ratio Triglycerides Cholesterol LDL Cholesterol Direct HDL Cholesterol Free T4 1.09 TSH 3rd Generation 1.01 Radiology Impressions: Radiology Impressions Chest X-Ray 02/24/18 22:42 IMPRESSION: Enlarged mediastinum. Recommend CT of the chest with IV contrast. Left basilar atelectasis/infiltrate. Biapical opacification of unclear significance, likely exaggerated by patient positioning and osseous structures; alternatives including consolidation not excluded. Study marked for PA review. EKG/Cardiology Studies: Cardiology / EKG Studies 02/24/18 22:42 ELECTROCARDIOGRAM Stat Comment: Reason For Exam: chest pain 02/25/18 00:15 ELECTROCARDIOGRAM DAILY Comment: Reason For Exam: chest pain 02/26/18 00:15 ELECTROCARDIOGRAM DAILY Comment: Reason For Exam: chest pain Critical Care Progress Note - Nutrition Nutrition: Nutrition Category Date Time Status Heart Healthy Diet [DIET] Diets 02/25/18 Breakfast Active Addendum Addendum: 02/25/18 18:03 ICU Attending Addendum Patient seen and examined. Case reviewed on round with housestaff. Agree with resident note above with the following additions/exceptions: 67F s/p STEMI from left anterior descending and left circumflex artery disease s/p cath and stent f/u cardio recs post stent ASA brillinta coreg and statin repeat LFTs likley from shock Rest of care as above Noris Pedraza MD Pulmonary Critical Care and Sleep Medicine
--- NOTE | 2018-02-25 11:00 | PN ---
DATE: 02/25/2018 SUBJECTIVE: The patient is seen lying in bed in the . She complains of some mild residual chest discomfort which is somewhat worse with inspiration. She remains hemodynamically stable. CURRENT MEDICATIONS: Include aspirin, Brilinta, carvedilol 6.25 mg b.i.d., Lipitor 80 mg daily. OBJECTIVE: GENERAL: She is an anxious appearing middle-aged woman. VITAL SIGNS: Blood pressure 122/76 with pulse of 90 and in sinus, respirations are 16. She is afebrile. HEENT: No JVD. CHEST: Few scattered rhonchi. HEART: PMI in normal position with a systolic murmur in the left sternal border. No rub is heard. ABDOMEN: Soft, nontender with bowel sounds. EXTREMITIES: No edema. Right femoral access site shows no evidence of hematoma. LABORATORY DATA: Potassium 5.1, BUN and creatinine 18 and 0.8, glucose is 136. White count 10.6, hemoglobin 14.3 and hematocrit 44.1 with platelet count 213,000. AST and ALT 617 and 111. Cholesterol 229, triglycerides 224, HDL 46 and LDL 132. Morning electrocardiogram is pending. IMPRESSION: 1. Acute myocardial fraction, status post emergency cardiac catheterization and percutaneous coronary intervention of left anterior descending. 2. Residual chest pain, possibly due to pericardial inflammation 3. Hyperlipidemia. RECOMMENDATIONS: Her current medications will be continued. Beta-ling dose will be increased as tolerated. Angiotensin receptor ling will be added as well as blood pressure allows. The patient should be gotten out of bed to wheelchair. Serial enzymes will be obtained. Repeat echocardiogram this morning is pending. Hemoglobin A1c will be checked as well. A standard post myocardial fraction care is advised. We will continue to follow and make further recommendations as appropriate. Richy Melgoza MD
--- NOTE | 2018-02-25 12:36 | RAD ---
HISTORY: chest pain COMPARISON: None available. TECHNIQUE: Chest, one view. FINDINGS: LUNGS: Left basilar atelectasis/infiltrate. Biapical opacification of unclear significance, likely exaggerated by patient positioning and osseous structures. Please note that chest x-ray has limited sensitivity for the detection of pulmonary masses. PLEURA: No significant pleural effusion identified. No definite pneumothorax . CARDIOVASCULAR: Mild cardiomegaly. Enlargement of the mediastinum. OSSEOUS STRUCTURES: Degenerative changes. VISUALIZED UPPER ABDOMEN: Unremarkable. OTHER FINDINGS: None. IMPRESSION: Enlarged mediastinum. Recommend CT of the chest with IV contrast. Left basilar atelectasis/infiltrate. Biapical opacification of unclear significance, likely exaggerated by patient positioning and osseous structures; alternatives including consolidation not excluded. Study marked for PA review.
--- NOTE | 2018-02-25 13:06 | CP.PCM.PN ---
<Guerrero Candelaria - Last Filed: 02/25/18 13:03> Subjective - Date & Time of Evaluation Date of Evaluation: 02/25/18 Time of Evaluation: 09:15 - Subjective Subjective: Guerrero Candelaria PGY1 Hospital Progress Note Patient seen and examined at bedside this morning. S/p 2 JANE stents placed. Echo pending. Denies CP/SOB, nausea/vomiting today. Resting comfortably and tolerating diet. Denies any complaints at this time. Objective - Vital Signs/Intake and Output Vital Signs (last 24 hours): Temp Pulse Resp BP Pulse Ox 97.5 F L 86 15 129/74 95 02/25/18 08:11 02/25/18 10:00 02/25/18 09:00 02/25/18 09:30 02/25/18 09:00 Intake and Output: 02/25/18 02/25/18 06:59 18:59 Intake Total 600 Output Total 800 Balance -200 - Medications Medications: Current Medications Aspirin (Aspirin Chewable) 81 mg PO DAILY [facility] Last Admin: 02/25/18 09:31 Dose: 81 mg Atorvastatin Calcium (Lipitor) 80 mg PO DIN [facility] Carvedilol (Coreg) 6.25 mg PO BID [facility] Last Admin: 02/25/18 09:30 Dose: 6.25 mg Docusate Sodium (Colace) 100 mg PO BID [facility] Last Admin: 02/25/18 09:29 Dose: 100 mg Nitroglycerin/Dextrose (Nitroglycerin 50 Mg/250 Ml D5w) 50 mg in 250 mls @ 3 mls/hr IV .Q24H PRN; Protocol PRN Reason: Pain, moderate (4-7) Last Admin: 02/24/18 23:51 Dose: 10 mcg/min, 3 mls/hr Ondansetron HCl (Zofran Inj) 4 mg IVP Q6H PRN PRN Reason: Nausea/Vomiting Ticagrelor (Brilinta) 90 mg PO BID [facility] Last Admin: 02/25/18 09:29 Dose: 90 mg - Labs Labs: 02/25/18 05:25 02/25/18 05:25 PT 10.8 SECONDS (9.4-12.5) 02/24/18 22:48 INR 0.95 02/24/18 22:48 - Constitutional Appears: No Acute Distress - Head Exam Head Exam: ATRAUMATIC, NORMAL INSPECTION - Eye Exam Eye Exam: EOMI Pupil Exam: PERRL - ENT Exam ENT Exam: Mucous Membranes Moist - Neck Exam Neck Exam: Normal Inspection - Respiratory Exam Respiratory Exam: Clear to Ausculation Bilateral. absent: Accessory Muscle Use, Wheezes, Respiratory Distress - Cardiovascular Exam Cardiovascular Exam: REGULAR RHYTHM, +S1, +S2 - GI/Abdominal Exam GI & Abdominal Exam: Soft, Normal Bowel Sounds. absent: Guarding, Tenderness - Extremities Exam Extremities Exam: Normal Inspection. absent: Calf Tenderness, Tenderness Additional comments: Right groin insertion site is clean, dry, non bleeding and no discoloration noted - Neurological Exam Neurological Exam: Alert, CN II-XII Intact, Oriented x3 - Skin Skin Exam: Normal Color, Warm Assessment and Plan - Assessment and Plan (Free Text) Assessment: 67yo female PMHx hypoglycemia and anxiety BIBA with complaint of chest pain for 1 day worsening 1 hour [employer]. In the ER patient's EKG revealed anterior wall WV with reciprocal changes. Code HEART called and patient was rushed to color laboratory technician. Patient had 2 JANE placed in LAD. Patient transferred to CCU for further management. Plan: Anterior Wall WV -initial EKG showed anterior wall WV with reciprocal changes -s/p cath with 2 JANE stents in the LAD on 02/24/18 -continue ASA, brilinta for one year -carvedilol 6.25mg BID -echo pending -A1c WNL, TSH WNL -cardiology on consult, Dr. Ayala HLD -abnormal lipid panel -holding lipitor 2/2 high LFT's, will resume once resolved Transaminitis -LFT's uptrending today -consider 2/2 acute WV -will follow up Hypokalemia -resolved today, will monitor PPX with brilinta and pepcid Heart healthy diet Patient seen and case discussed with attending, Dr. Holm <Santi Holm - Last Filed: 02/25/18 16:13> Objective - Vital Signs/Intake and Output Vital Signs (last 24 hours): Temp Pulse Resp BP Pulse Ox 97.5 F L 81 17 149/82 94 L 02/25/18 08:11 02/25/18 14:01 02/25/18 14:01 02/25/18 14:01 02/25/18 14:01 Intake and Output: 02/25/18 02/25/18 06:59 18:59 Intake Total 600 Output Total 800 Balance -200 - Medications Medications: Current Medications Aspirin (Aspirin Chewable) 81 mg PO DAILY [facility] Last Admin: 02/25/18 09:31 Dose: 81 mg Atorvastatin Calcium (Lipitor) 80 mg PO DIN [facility] Carvedilol (Coreg) 6.25 mg PO BID [facility] Last Admin: 02/25/18 09:30 Dose: 6.25 mg Docusate Sodium (Colace) 100 mg PO BID [facility] Last Admin: 02/25/18 09:29 Dose: 100 mg Famotidine (Pepcid) 20 mg IVP DAILY [facility] Nitroglycerin/Dextrose (Nitroglycerin 50 Mg/250 Ml D5w) 50 mg in 250 mls @ 3 mls/hr IV .Q24H PRN; Protocol PRN Reason: Pain, moderate (4-7) Last Admin: 02/24/18 23:51 Dose: 10 mcg/min, 3 mls/hr Sodium Chloride (Sodium Chloride 0.9%) 1,000 mls @ 75 mls/hr IV .[id number] [facility] Stop: 02/25/18 23:00 Ondansetron HCl (Zofran Inj) 4 mg IVP Q6H PRN PRN Reason: Nausea/Vomiting Ticagrelor (Brilinta) 90 mg PO BID [facility] Last Admin: 02/25/18 09:29 Dose: 90 mg - Labs Labs: 02/25/18 05:25 02/25/18 05:25 PT 10.8 SECONDS (9.4-12.5) 02/24/18 22:48 INR 0.95 02/24/18 22:48 Attending/Attestation - Attestation I have personally seen and examined this patient.: Yes I have fully participated in the care of the patient.: Yes I have reviewed all pertinent clinical information, including history, physical exam and plan: Yes Notes (Text): Medical record note made by the resident after discussion with my direction and input after the patient was personally seen and examined by me. I have reviewed the chart and agree that the record accurately reflects by personal performance of the history, physical exam, data review, and medical decision-making, in the course for the patient. I have also personally directed the plan of care. 67yo female PMHx hypoglycemia and anxiety BIBA with complaint of chest pain for 1 day worsening 1 hour [employer]. In the ER patient's EKG revealed anterior wall WV with reciprocal changes. Code HEART called and patient was rushed to color laboratory technician. Patient had 2 JANE placed in Left Anterior desending Artery. Continue Aspirin./Brillanta/Coreg and statin. We will follow up Echo results. Management plan was discussed in detail with patient. Education was provided.
--- NOTE | 2018-02-25 14:31 | CON ---
DATE: 02/25/2018 REQUESTING PHYSICIAN: Dr. Rosen. REASON FOR CONSULTATION: Acute myocardial fraction. HISTORY OF PRESENT ILLNESS: This is a 67-year-old woman with a reported history of borderline hyperlipidemia in the past, who was brought to the emergency room with a crushing chest pain. She states she has had no prior cardiac history. She began having chest discomfort on and off throughout the day today and had a severe episode, which began less than an hour prior to admission. Upon arrival, she showed evidence of anterior ST elevations and emergency catheterization was advised. She reportedly is not hypertensive or diabetic. She does not smoke. There is a family history of premature heart disease. PAST MEDICAL HISTORY: Her past history is otherwise relatively unremarkable. She has a history of anxiety and underwent a cholecystectomy many years ago. MEDICATIONS: Her only medication at home was Xanax p.r.n. ALLERGIES: AZITHROMYCIN. SOCIAL HISTORY: She lives with her family at home. She denies alcohol or tobacco use. She smoked rarely as a teenager. FAMILY HISTORY: Father from myocardial infraction at 60s. Mother had a history of hypothyroidism. REVIEW OF SYSTEMS: Ten-point review of systems is notable mainly for problems mentioned above. She is not terribly active. PHYSICAL EXAMINATION: GENERAL: She is an anxious-appearing middle-aged woman. VITAL SIGNS: Her blood pressure was 120/80 with a pulse of 100, respirations are 24. She is afebrile. HEENT: Normocephalic, atraumatic. NECK: Supple. CHEST: Clear to auscultation and percussion. HEART: PMI in normal position. Systolic murmur is present at left sternal border. ABDOMEN: Soft, mildly obese, nontender, with active bowel sounds. EXTREMITIES: No edema. SKIN: Warm and dry. PSYCHIATRIC: Moderate anxiety, otherwise normal mood and affect. NEUROLOGIC: Alert and oriented x3. No gross motor or sensory deficits are appreciated. DIAGNOSTIC DATA: White count 11.5, hemoglobin and hematocrit are 16.1 and 48 with a platelet count of 246,000. PT/INR, normal. Potassium 3.3, BUN and creatinine are 20 and 0.9. Troponin is 0.02. CK is 40. Electrocardiogram reveals sinus rhythm with anterior ST elevations or reciprocal changes. Chest x-ray is pending. IMPRESSION: 1. Acute anterior myocardial fraction. 2. History of hyperlipidemia. RECOMMENDATIONS: The patient was brought emergently to cardiac catheterization laboratory to undergo coronary angiography and possible PCI if suitable anatomy is found. Further recommendations will be based upon those results. She has been loaded with aspirin and Brilinta as well as a bolus of heparin. Thank you for this consultation, and we will be happy to follow along as needed. Richy Melgoza MD
--- NOTE | 2018-02-25 14:35 | CARD ---
APPROVED REPORT Date of service: 02/25/2018 EXAM: Two-dimensional and M-mode echocardiogram with Doppler and color Doppler. INDICATION STEMI,CODE HEART 2D DIMENSIONS Left Atrium (2D)3.4 (1.6-4.0cm)IVSd1.2 (0.7-1.1cm) LVDd4.8 (3.9-5.9cm)PWd1.1 (0.7-1.1cm) M-Mode DIMENSIONS Aortic Root3.20 (2.2-3.7cm)Aortic Cusp Exc.1.60 (1.5-2.0cm) Aortic Valve AoV Peak Zzlqpomo498.0cm/sAoV VTI34.1cmAO Peak GR.8mmHg LVOT Peak Xsjouinb273.0cm/sLVOT VTI25.10cmAO Mean GR.6mmHg Mitral Valve MV E Ylvrmfay71.6cm/sMV A Gzdjldvu380.0cm/sE/A ratio0.6 TDI Lateral E' Peak V7.02cm/sMedial E' Peak V5.82cm/sE/Lateral E'10.1 E/Medial E'12.1 Pulmonary Valve PV Peak Gguyxlpe81.9cm/sPV Peak Grad.3mmHg Tricuspid Valve TR Peak Ykjrmvjb380oy/sRAP [id number] Peak Gr.30mmHg [id number] LEFT VENTRICLE There is borderline concentric left ventricular hypertrophy. The systolic function is moderately to severely impaired. There is akinesis of the apex. There is severe hypokinesis of the anteroseptal and anterior hartley. RIGHT VENTRICLE The right ventricle is normal size. The right ventricular systolic function is normal. ATRIA The left atrium size is normal. The interatrial septum is intact with no evidence for an atrial septal defect. AORTIC VALVE The aortic valve is normal in structure. No aortic regurgitation is present. There is no aortic valvular stenosis. MITRAL VALVE The mitral valve is normal in structure. Mitral regurgitation is trace. TRICUSPID VALVE The tricuspid valve is normal in structure. There is mild tricuspid regurgitation. PULMONIC VALVE The pulmonary valve is normal in structure. GREAT VESSELS The aortic root is normal in size. The IVC is normal in size and collapses >50% with inspiration. PERICARDIAL EFFUSION There is no pleural effusion. There is no pericardial effusion. <Conclusion> Borderline concentric LVH. Normal chamber size. Moderate to severely reduced LV systolic function with apical akinesis and anterior and anteroseptal hypokinesis. Mild TR.
--- NOTE | 2018-02-25 18:57 | CARD ---
APPROVED REPORT Date of service: 02/25/2018 EKG Measurement Heart [id number] <Conclusion> Normal sinus rhythm Low voltage QRS Anterolateral infarct, possibly acute ACUTE AK Abnormal ECG
[2018-02-26 06:10] LABS: BASO # 0.01 K/mm3 (0.0-2.0); BASO % 0.1 % (0.0-3.0); EOS % 0.1 % (1.5-5.0); GRAN # 8.5 (1.4-6.5); GRAN % 72.7 % (50.0-68.0); HEMOGLOBIN 13.2 g/dL (12.0-16.0); LYMPH # 1.9 (1.2-3.4); LYMPH % 16.1 % (22.0-35.0); MEAN CELL VOLUME 88.2 fl (80.0-105.0); MEAN CORPUSCULAR HEMOGLOBIN 28.3 pg (25.0-35.0); MEAN CORPUSCULAR HGB CONC 32.1 g/dl (31.0-37.0); MEAN PLATELET VOLUME 9.9 fl (7.0-11.0); MONO # 1.3 (0.1-0.6); RBC 4.66 10^6/uL (3.5-6.1); RED CELL DISTRIBUTION WIDTH 13.7 % (11.5-14.5); WHITE BLOOD COUNT 11.7 10^3/uL (4.5-11.0)
[2018-02-26 07:06] LABS: ALB/GLOB RATIO 1.3 (1.1-1.8); ALBUMIN 3.8 g/dL (3.0-4.8); ALT/SGPT 98 U/L (7-56); AST/SGOT 378 U/L (14-36); BLOOD UREA NITROGEN 16 mg/dL (7-21); CALCIUM 9.3 mg/dL (8.4-10.5); GFR NON-AFRICAN AMERICAN > 60
--- NOTE | 2018-02-26 09:26 | CP.CCUPN ---
<Kevin Haley - Last Filed: 02/26/18 13:19> CCU Subjective - Physician Review Subjective (Free Text): 02/26/18 12:24 Genaro Haley PGY2 - ICU Progress Note Patient seen and examined in ICU. No acute events reported overnight. Patient indicating nausea and palpitations. Patient reports able to tolerate diet at this time. Patient denies chest pain, shortness of breath, abdominal pain. CCU Objective - Vital Signs / Intake & Output Vital Signs (Last 4 hours): Vital Signs Temp Pulse Resp BP Pulse Ox 02/26/18 09:00 85 18 132/71 93 L 02/26/18 08:00 97.9 F 87 21 127/65 94 L 02/26/18 07:00 101 H 27 H 125/80 93 L 02/26/18 06:00 101 H 133/57 L 02/26/18 05:59 73 19 97 Intake and Output (Last 8hrs): Intake & Output 02/25/18 02/26/18 02/26/18 22:59 06:59 14:59 Intake Total 1315 1140 Output Total 1300 730 Balance 15 410 Weight 195 lb Intake: IV 1075 900 IVF 1075 Right Forearm 900 Oral 240 240 Output: Urine 400 730 Urine, Voided 400 730 Emesis 900 Other: # Voids Urine, Voided 1 2 # Bowel Movements 0 - Physical Exam Head: Positive for: Atraumatic, Normocephalic Pupils: Positive for: PERRL Extroacular Muscles: Positive for: EOMI Conjunctiva: Positive for: Normal Mouth: Positive for: Moist Mucous Membranes Neck: Positive for: Normal Range of Motion Respiratory/Chest: Positive for: Clear to Auscultation, Good Air Exchange. Negative for: Respiratory Distress, Accessory Muscle Use Cardiovascular: Positive for: Regular Rate and Rhythm, Normal S1, S2. Negative for: Murmurs Abdomen: Negative for: Tenderness, Distention, Peritoneal Signs Back: Positive for: Normal Inspection Upper Extremity: Positive for: Normal Inspection. Negative for: Cyanosis, Edema Lower Extremity: Positive for: Normal Inspection, Tenderness (mild around cath site ), Other (right lower extremity groin region without hematoma, swelling and minimal ecchymosis, ). Negative for: Edema Neurological: Positive for: GCS=15, CN II-XII Intact, Speech Normal Skin: Positive for: Warm, Normal Color, Diaphoretic. Negative for: Rashes Psychiatric: Positive for: Alert, Oriented x 3, Normal Insight, Normal Concentration - Medications Active Medications: Active Medications Generic Name Dose Route Start Last Admin Trade Name Freq PRN Reason Stop Dose Admin Aspirin 81 mg 02/25/18 10:00 02/25/18 09:31 Aspirin Chewable PO 81 mg DAILY CHERELLE Administration Atorvastatin Calcium 80 mg 02/25/18 17:00 Lipitor PO DIN CHERELLE Carvedilol 6.25 mg 02/25/18 10:00 02/25/18 17:14 Coreg PO 6.25 mg BID CHERELLE Administration Docusate Sodium 100 mg 02/25/18 10:00 02/25/18 17:14 Colace PO 100 mg BID CHERELLE Administration Famotidine 20 mg 02/26/18 10:00 Pepcid IVP DAILY [facility] Nitroglycerin/Dextrose 50 mg in 250 mls @ 3 mls/hr 02/24/18 22:42 02/24/18 23:51 Nitroglycerin 50 Mg/250 Ml D5w IV 10 mcg/min .Q24H PRN 3 mls/hr Pain, moderate (4-7) Administration Protocol 10 MCG/MIN Metoclopramide HCl 5 mg 02/25/18 22:27 Reglan IVP Q6H PRN Nausea/Vomiting Ondansetron HCl 4 mg 02/25/18 18:00 02/25/18 17:18 Zofran Inj IVP 4 mg Q6H PRN Administration Nausea/Vomiting Ticagrelor 90 mg 02/25/18 10:00 02/25/18 17:14 Brilinta PO 90 mg BID [facility] Administration - Patient Studies Lab Studies: Lab Studies 02/26/18 02/26/18 02/25/18 Range/Units 05:20 05:20 13:00 WBC 11.7 H (4.5-11.0) 10^3/uL RBC 4.66 (3.5-6.1) 10^6/uL Hgb 13.2 (12.0-16.0) g/dL Hct 41.1 (36.0-48.0) % MCV 88.2 (80.0-105.0) fl MCH 28.3 (25.0-35.0) pg MCHC 32.1 (31.0-37.0) g/dl RDW 13.7 (11.5-14.5) % Plt Count 193 (120.0-450.0) 10^3/uL MPV 9.9 (7.0-11.0) fl Gran % 72.7 H (50.0-68.0) % Lymph % (Auto) 16.1 L (22.0-35.0) % [place] % (Auto) 11.0 H (1.0-6.0) % Eos % (Auto) 0.1 L (1.5-5.0) % Baso % (Auto) 0.1 (0.0-3.0) % Gran # 8.50 H (1.4-6.5) Lymph # (Auto) 1.9 (1.2-3.4) [place] # (Auto) 1.3 H (0.1-0.6) Eos # (Auto) 0.0 (0.0-0.7) Baso # (Auto) 0.01 (0.0-2.0) K/mm3 Sodium 139 (132-148) mmol/L Potassium 4.6 (3.6-5.0) mmol/L Chloride 106 (98-107) mmol/L Carbon Dioxide 30 (21-33) mmol/L Anion Gap 8 L (10-20) BUN 16 (7-21) mg/dL Creatinine 0.9 (0.7-1.2) mg/dl Est GFR ( Amer) > 60 Est GFR (Non-Af Amer) > 60 Random Glucose 109 (70-110) mg/dL Hemoglobin A1c (4.2-6.5) % Calcium 9.3 (8.4-10.5) mg/dL Phosphorus 2.5 (2.5-4.5) mg/dL Magnesium 2.2 (1.7-2.2) mg/dL Total Bilirubin 0.9 (0.2-1.3) mg/dL AST 378 H D (14-36) U/L ALT 98 H (7-56) U/L Alkaline Phosphatase 72 (38-126) U/L Troponin I 53.90 H* D 107.00 H* D ng/mL Total Protein 6.7 (5.8-8.3) g/dL Albumin 3.8 (3.0-4.8) g/dL Globulin 2.9 gm/dL Albumin/Globulin Ratio 1.3 (1.1-1.8) 02/25/18 Range/Units 05:25 WBC (4.5-11.0) 10^3/uL RBC (3.5-6.1) 10^6/uL Hgb (12.0-16.0) g/dL Hct (36.0-48.0) % MCV (80.0-105.0) fl MCH (25.0-35.0) pg MCHC (31.0-37.0) g/dl RDW (11.5-14.5) % Plt Count (120.0-450.0) 10^3/uL MPV (7.0-11.0) fl Gran % (50.0-68.0) % Lymph % (Auto) (22.0-35.0) % [place] % (Auto) (1.0-6.0) % Eos % (Auto) (1.5-5.0) % Baso % (Auto) (0.0-3.0) % Gran # (1.4-6.5) Lymph # (Auto) (1.2-3.4) [place] # (Auto) (0.1-0.6) Eos # (Auto) (0.0-0.7) Baso # (Auto) (0.0-2.0) K/mm3 Sodium (132-148) mmol/L Potassium (3.6-5.0) mmol/L Chloride (98-107) mmol/L Carbon Dioxide (21-33) mmol/L Anion Gap (10-20) BUN (7-21) mg/dL Creatinine (0.7-1.2) mg/dl Est GFR ( Amer) Est GFR (Non-Af Amer) Random Glucose (70-110) mg/dL Hemoglobin A1c 5.3 (4.2-6.5) % Calcium (8.4-10.5) mg/dL Phosphorus (2.5-4.5) mg/dL Magnesium (1.7-2.2) mg/dL Total Bilirubin (0.2-1.3) mg/dL AST (14-36) U/L ALT (7-56) U/L Alkaline Phosphatase (38-126) U/L Troponin I ng/mL Total Protein (5.8-8.3) g/dL Albumin (3.0-4.8) g/dL Globulin gm/dL Albumin/Globulin Ratio (1.1-1.8) Laboratory Results - last 24 hr 02/25/18 02/25/18 02/26/18 05:25 13:00 05:20 WBC 11.7 H RBC 4.66 Hgb 13.2 Hct 41.1 MCV 88.2 MCH 28.3 MCHC 32.1 RDW 13.7 Plt Count 193 MPV 9.9 Gran % 72.7 H Lymph % (Auto) 16.1 L [place] % (Auto) 11.0 H Eos % (Auto) 0.1 L Baso % (Auto) 0.1 Gran # 8.50 H Lymph # (Auto) 1.9 [place] # (Auto) 1.3 H Eos # (Auto) 0.0 Baso # (Auto) 0.01 Sodium Potassium Chloride Carbon Dioxide Anion Gap BUN Creatinine Est GFR ( Amer) Est GFR (Non-Af Amer) Random Glucose Hemoglobin A1c 5.3 Calcium Phosphorus Magnesium Total Bilirubin AST ALT Alkaline Phosphatase Troponin I 107.00 H* D Total Protein Albumin Globulin Albumin/Globulin Ratio 02/26/18 05:20 WBC RBC Hgb Hct MCV MCH MCHC RDW Plt Count MPV Gran % Lymph % (Auto) [place] % (Auto) Eos % (Auto) Baso % (Auto) Gran # Lymph # (Auto) [place] # (Auto) Eos # (Auto) Baso # (Auto) Sodium 139 Potassium 4.6 Chloride 106 Carbon Dioxide 30 Anion Gap 8 L BUN 16 Creatinine 0.9 Est GFR ( Amer) > 60 Est GFR (Non-Af Amer) > 60 Random Glucose 109 Hemoglobin A1c Calcium 9.3 Phosphorus 2.5 Magnesium 2.2 Total Bilirubin 0.9 AST 378 H D ALT 98 H Alkaline Phosphatase 72 Troponin I 53.90 H* D Total Protein 6.7 Albumin 3.8 Globulin 2.9 Albumin/Globulin Ratio 1.3 Radiology Impressions: Radiology Impressions Chest X-Ray 02/24/18 22:42 IMPRESSION: Enlarged mediastinum. Recommend CT of the chest with IV contrast. Left basilar atelectasis/infiltrate. Biapical opacification of unclear significance, likely exaggerated by patient positioning and osseous structures; alternatives including consolidation not excluded. Study marked for PA review. EKG/Cardiology Studies: Cardiology / EKG Studies 02/26/18 00:15 ELECTROCARDIOGRAM DAILY Comment: Reason For Exam: chest pain 02/26/18 08:00 EKG [ELECTROCARDIOGRAM] Routine Comment: Reason For Exam: Chest pain Review of Systems - Review of Systems All systems: reviewed and no additional remarkable complaints except (as mentioned in HPI) Critical Care Progress Note - Nutrition Nutrition: Nutrition Category Date Time Status Heart Healthy Diet [DIET] Diets 02/25/18 Breakfast Active Assessment/Plan - Assessment and Plan (Free Text) Assessment: 67 year old female with past medical history of hypoglycemia and anxiety who presented with severe chest pain 1 hour in onset, admitted and taken for [facility] with Dr. 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 Patient has been monitored in ICU for >24 hours with periodic episodes this AM of ventricular tachycardias and atrial fibrillation Plan: Neuro: AAOx3 Monitor mentation Cardio: Acute anterior CA s/p PCI -[facility] showing LAD and LCA disease, PCIx2 of LAD -EF 45% -ASA, Brillinta, coreg BID, Lipitor -CLYDE or ARB as tolerated -Cardiology consulted and following Atrial Fibrillation with evidence of ventricular tachycardia episodes s/p cath -likely secondary to reperfusion -Digoxin load 0.25mg Q6H followed by 0.25mg daily -Carvedilol 12.5mg BID HLD (TG 224, CH 220, LDL 132) -Lipitor -HHD Pulm: -Maintain SaO2 >92% -Supplemental O2 as needed Renal: -Maintain euvolemia, replete electrolytes as needed -Cont to monitor GI: Elevated LFT s/p cath -LFT trending downward over past 24 hours -LFT wnl on admission -Etiology possibly secondary to hypovolemic 2/2 acute CA -IV zofran 4mg Q6H PRN -IV reglan -GI ppx -HHD ID: Afebrile, mild leukocytosis likely stress related -Montor CBC, temperature, GI symptoms Psych: Anxiety -Continue to monitor GI/DVT ppx -Protonix -Heparin Patient seen, case and plan discussed with attending Dr. Pedraza <Noris Pedraza - Last Filed: 02/26/18 17:28> CCU Objective - Vital Signs / Intake & Output Vital Signs (Last 4 hours): Vital Signs Temp Pulse Resp BP Pulse Ox 02/26/18 17:21 103 H 109/51 L 02/26/18 16:00 98.4 F 82 18 127/48 L 96 02/26/18 15:00 98 H 17 130/60 96 02/26/18 14:00 94 H 18 123/73 93 L Intake and Output (Last 8hrs): Intake & Output 02/26/18 02/26/18 02/26/18 06:59 14:59 22:59 Intake Total 1140 Output Total 730 Balance 410 Weight 88.451 kg Intake: IV 900 Right Forearm 900 Oral 240 Output: Urine 730 Urine, Voided 730 Other: # Voids Urine, Voided 2 - Medications Active Medications: Active Medications Generic Name Dose Route Start Last Admin Trade Name Freq PRN Reason Stop Dose Admin Aspirin 81 mg 02/25/18 10:00 02/26/18 09:25 Aspirin Chewable PO 81 mg DAILY [facility] Administration Atorvastatin Calcium 80 mg 02/25/18 17:00 Lipitor PO DIN [facility] Carvedilol 12.5 mg 02/26/18 12:09 02/26/18 17:21 Coreg PO 12.5 mg BID [facility] Administration Digoxin 0.25 mg 02/26/18 18:00 02/26/18 17:22 Lanoxin IV 02/27/18 00:01 0.25 mg Q6H CHERELLE Administration Digoxin 0.25 mg 02/27/18 14:00 Lanoxin PO 1400 CHERELLE Docusate Sodium 100 mg 02/25/18 10:00 02/26/18 17:21 Colace PO 100 mg BID [facility] Administration Famotidine 20 mg 02/27/18 10:00 Pepcid PO DAILY [facility] Heparin Sodium (Porcine) 5,000 units 02/26/18 22:00 Heparin SC Q8 [facility] Protocol Lisinopril 5 mg 02/26/18 10:00 02/26/18 17:21 Zestril PO 5 mg DAILY CHERELLE Administration Metoclopramide HCl 5 mg 02/25/18 22:27 Reglan IVP Q6H PRN Nausea/Vomiting Ondansetron HCl 4 mg 02/25/18 18:00 02/25/18 17:18 Zofran Inj IVP 4 mg Q6H PRN Administration Nausea/Vomiting Ticagrelor 90 mg 02/25/18 10:00 02/26/18 17:21 Brilinta PO 90 mg BID CHERELLE Administration - Patient Studies Lab Studies: Microbiology Studies 02/25/18 00:25 MRSA Culture (Admit) - Final Nose MRSA NOT DETECTED Lab Studies 02/26/18 02/26/18 Range/Units 05:20 05:20 WBC 11.7 H (4.5-11.0) 10^3/uL RBC 4.66 (3.5-6.1) 10^6/uL Hgb 13.2 (12.0-16.0) g/dL Hct 41.1 (36.0-48.0) % MCV 88.2 (80.0-105.0) fl MCH 28.3 (25.0-35.0) pg MCHC 32.1 (31.0-37.0) g/dl RDW 13.7 (11.5-14.5) % Plt Count 193 (120.0-450.0) 10^3/uL MPV 9.9 (7.0-11.0) fl Gran % 72.7 H (50.0-68.0) % Lymph % (Auto) 16.1 L (22.0-35.0) % [place] % (Auto) 11.0 H (1.0-6.0) % Eos % (Auto) 0.1 L (1.5-5.0) % Baso % (Auto) 0.1 (0.0-3.0) % Gran # 8.50 H (1.4-6.5) Lymph # (Auto) 1.9 (1.2-3.4) [place] # (Auto) 1.3 H (0.1-0.6) Eos # (Auto) 0.0 (0.0-0.7) Baso # (Auto) 0.01 (0.0-2.0) K/mm3 Sodium 139 (132-148) mmol/L Potassium 4.6 (3.6-5.0) mmol/L Chloride 106 (98-107) mmol/L Carbon Dioxide 30 (21-33) mmol/L Anion Gap 8 L (10-20) BUN 16 (7-21) mg/dL Creatinine 0.9 (0.7-1.2) mg/dl Est GFR ( Amer) > 60 Est GFR (Non-Af Amer) > 60 Random Glucose 109 (70-110) mg/dL Calcium 9.3 (8.4-10.5) mg/dL Phosphorus 2.5 (2.5-4.5) mg/dL Magnesium 2.2 (1.7-2.2) mg/dL Total Bilirubin 0.9 (0.2-1.3) mg/dL AST 378 H D (14-36) U/L ALT 98 H (7-56) U/L Alkaline Phosphatase 72 (38-126) U/L Troponin I 53.90 H* D ng/mL Total Protein 6.7 (5.8-8.3) g/dL Albumin 3.8 (3.0-4.8) g/dL Globulin 2.9 gm/dL Albumin/Globulin Ratio 1.3 (1.1-1.8) Laboratory Results - last 24 hr 02/26/18 02/26/18 05:20 05:20 WBC 11.7 H RBC 4.66 Hgb 13.2 Hct 41.1 MCV 88.2 MCH 28.3 MCHC 32.1 RDW 13.7 Plt Count 193 MPV 9.9 Gran % 72.7 H Lymph % (Auto) 16.1 L [place] % (Auto) 11.0 H Eos % (Auto) 0.1 L Baso % (Auto) 0.1 Gran # 8.50 H Lymph # (Auto) 1.9 [place] # (Auto) 1.3 H Eos # (Auto) 0.0 Baso # (Auto) 0.01 Sodium 139 Potassium 4.6 Chloride 106 Carbon Dioxide 30 Anion Gap 8 L BUN 16 Creatinine 0.9 Est GFR ( Amer) > 60 Est GFR (Non-Af Amer) > 60 Random Glucose 109 Calcium 9.3 Phosphorus 2.5 Magnesium 2.2 Total Bilirubin 0.9 AST 378 H D ALT 98 H Alkaline Phosphatase 72 Troponin I 53.90 H* D Total Protein 6.7 Albumin 3.8 Globulin 2.9 Albumin/Globulin Ratio 1.3 Radiology Impressions: Radiology Impressions Abdomen Ultrasound 02/26/18 09:34 IMPRESSION: 1. Hepatic steatosis without focal mass or intrahepatic biliary dilatation appreciable. Other infiltrative process not excluded. 2. Partial imaging of the pancreas as per above. 3. Prior cholecystectomy. Clinically correlate further. EKG/Cardiology Studies: Cardiology / EKG Studies 02/26/18 08:00 EKG [ELECTROCARDIOGRAM] Routine Comment: Reason For Exam: Chest pain Critical Care Progress Note - Nutrition Nutrition: Nutrition Category Date Time Status Heart Healthy Diet [DIET] Diets 02/25/18 Breakfast Active Addendum Addendum: 02/26/18 17:26 ICU Attending Addendum Patient seen and examined. Case reviewed on round with housestaff. Agree with resident note above with the following additions/exceptions: 67F s/p STEMI from left anterior descending and left circumflex artery disease s/p cath and stent f/u cardio recs post stent ASA brillinta coreg and statin still tachycardic with episodes of VT defer management to cardio Rest of care as above Noris Pedraza MD Pulmonary Critical Care and Sleep Medicine
[2018-02-26] MEDS ORDERED: Digoxin 500 mcg/2ml (0.5 mg/2ml) Inj IV ONE (11:50)
--- NOTE | 2018-02-26 14:38 | CP.PCM.PN ---
<Guerrero Candelaria - Last Filed: 02/26/18 14:40> Subjective - Date & Time of Evaluation Date of Evaluation: 02/26/18 Time of Evaluation: 09:15 - Subjective Subjective: Guerrero Candelaria Y1 [facility] Progress Note Patient seen and examined at bedside this AM. Vomitted twice yesterday while eating food. No n/v this AM. Abd US pending. PT eval pending. Offers no complaints today. Objective - Vital Signs/Intake and Output Vital Signs (last 24 hours): Temp Pulse Resp BP Pulse Ox 98.2 F 136 H 21 119/77 93 L 02/26/18 12:00 02/26/18 12:10 02/26/18 10:00 02/26/18 12:10 02/26/18 10:01 Intake and Output: 02/26/18 02/26/18 06:59 18:59 Intake Total 1140 Output Total 730 Balance 410 - Medications Medications: Current Medications Aspirin (Aspirin Chewable) 81 mg PO DAILY [facility] Last Admin: 02/26/18 09:25 Dose: 81 mg Atorvastatin Calcium (Lipitor) 80 mg PO DIN [facility] Carvedilol (Coreg) 12.5 mg PO BID [facility] Digoxin (Lanoxin) 0.25 mg IV Q6H [facility] Stop: 02/27/18 00:01 Digoxin (Lanoxin) 0.25 mg PO 1400 [facility] Docusate Sodium (Colace) 100 mg PO BID [facility] Last Admin: 02/26/18 09:25 Dose: 100 mg Famotidine (Pepcid) 20 mg PO DAILY [facility] Lisinopril (Zestril) 5 mg PO DAILY [facility] Metoclopramide HCl (Reglan) 5 mg IVP Q6H PRN PRN Reason: Nausea/Vomiting Ondansetron HCl (Zofran Inj) 4 mg IVP Q6H PRN PRN Reason: Nausea/Vomiting Last Admin: 02/25/18 17:18 Dose: 4 mg Ticagrelor (Brilinta) 90 mg PO BID [facility] Last Admin: 02/26/18 09:25 Dose: 90 mg - Labs Labs: 02/26/18 05:20 02/26/18 05:20 PT 10.8 SECONDS (9.4-12.5) 02/24/18 22:48 INR 0.95 02/24/18 22:48 - Additional Findings Additional findings: - Constitutional Appears: No Acute Distress - Head Exam Head Exam: ATRAUMATIC, NORMAL INSPECTION - Eye Exam Eye Exam: EOMI Pupil Exam: PERRL - ENT Exam ENT Exam: Mucous Membranes Moist - Neck Exam Neck Exam: Normal Inspection - Respiratory Exam Respiratory Exam: Clear to Ausculation Bilateral. absent: Accessory Muscle Use, Wheezes, Respiratory Distress - Cardiovascular Exam Cardiovascular Exam: REGULAR RHYTHM, +S1, +S2 - GI/Abdominal Exam GI & Abdominal Exam: Soft, Normal Bowel Sounds. absent: Guarding, Tenderness - Extremities Exam Extremities Exam: Normal Inspection. absent: Calf Tenderness, Tenderness Additional comments: Right groin insertion site is clean, dry, non bleeding and no discoloration noted - Neurological Exam Neurological Exam: Alert, CN II-XII Intact, Oriented x3 - Skin Skin Exam: Normal Color, Warm Assessment and Plan - Assessment and Plan (Free Text) Assessment: 67yo female PMHx hypoglycemia and anxiety BIBA with complaint of chest pain for 1 day worsening 1 hour [employer]. In the ER patient's EKG revealed anterior wall MO with reciprocal changes. Code HEART called and patient was rushed to scientific laboratory supervisor. Patient had 2 JANE placed in LAD. Patient transferred to CCU for further management. Plan: Anterior Wall MO -initial EKG showed anterior wall MO with reciprocal changes -s/p cath with 2 JANE stents in the LAD on 02/24/18 -continue ASA, brilinta for one year -carvedilol 6.25mg BID -started on lisinopril 5mg -started on digoxin -echo shows borderline LVH, moderate to severe reduced LV systolic function -A1c WNL, TSH WNL -cardiology on consult, Dr. Ayala -PT eval Transaminitis -LFT's downtrending today -Abd US pending -will follow up HLD -abnormal lipid panel -holding lipitor 2/2 high LFT's, will resume once resolved Hypokalemia - resolved -will monitor PPX/Diet -pepcid, heparin -Heart healthy diet Patient seen and case discussed with attending, Dr. Holm <Santi Holm - Last Filed: 02/28/18 15:58> Objective - Vital Signs/Intake and Output Vital Signs (last 24 hours): Temp Pulse Resp BP Pulse Ox 97.1 F L 59 L 21 132/68 96 02/28/18 12:00 02/28/18 12:00 02/28/18 12:00 02/28/18 12:00 02/28/18 00:00 Intake and Output: 02/28/18 02/28/18 06:59 18:59 Intake Total 900 Output Total 650 Balance 250 - Medications Medications: Current Medications Amiodarone HCl (Cordarone) 200 mg PO BID [facility] Last Admin: 02/28/18 11:32 Dose: 200 mg Aspirin (Aspirin Chewable) 81 mg PO DAILY [facility] Last Admin: 02/28/18 11:45 Dose: 81 mg Atorvastatin Calcium (Lipitor) 80 mg PO DIN [facility] Carvedilol (Coreg) 12.5 mg PO BID [facility] Last Admin: 02/28/18 11:45 Dose: 12.5 mg Docusate Sodium (Colace) 100 mg PO BID [facility] Last Admin: 02/28/18 11:37 Dose: 100 mg Famotidine (Pepcid) 20 mg PO DAILY [facility] Last Admin: 02/28/18 11:40 Dose: 20 mg Heparin Sodium (Porcine) (Heparin) 5,000 units SC Q8 [facility]; Protocol Last Admin: 02/28/18 05:39 Dose: 5,000 units Lisinopril (Zestril) 5 mg PO DAILY [facility] Last Admin: 02/28/18 11:37 Dose: 5 mg Metoclopramide HCl (Reglan) 5 mg IVP Q6H PRN PRN Reason: Nausea/Vomiting Ondansetron HCl (Zofran Inj) 4 mg IVP Q6H PRN PRN Reason: Nausea/Vomiting Last Admin: 02/25/18 17:18 Dose: 4 mg Ticagrelor (Brilinta) 90 mg PO BID [facility] Last Admin: 02/28/18 11:45 Dose: 90 mg - Labs Labs: 02/28/18 07:00 02/28/18 07:00 PT 10.8 SECONDS (9.4-12.5) 02/24/18 22:48 INR 0.95 02/24/18 22:48 Attending/Attestation - Attestation I have personally seen and examined this patient.: Yes I have fully participated in the care of the patient.: Yes I have reviewed all pertinent clinical information, including history, physical exam and plan: Yes Notes (Text): 02/28/18 15:58 Medical record note made by the resident after discussion with my direction and input after the patient was personally seen and examined by me. I have reviewed the chart and agree that the record accurately reflects by personal performance of the history, physical exam, data review, and medical decision-making, in the course for the patient. I have also personally directed the plan of care.
--- NOTE | 2018-02-26 16:43 | US ---
Date of service: 02/26/2018 HISTORY: elevated LFT COMPARISON: None. TECHNIQUE: Sonographic evaluation of the right upper quadrant of the abdomen. FINDINGS: LIVER: Measures 14.8 cm in length. Increased echogenicity of the liver parenchyma. No mass. No intrahepatic bile duct dilatation. GALLBLADDER: Prior cholecystectomy reportedly. COMMON BILE DUCT: Measures 6.0 mm. No stones. No dilatation. PANCREAS: The tail of the pancreas is obscured by overlying bowel gas with remainder unremarkable. RIGHT KIDNEY: Measures 11.2 cm in length. Normal echogenicity. No calculus, mass, or hydronephrosis. AORTA: No aneurysmal dilatation. IVC: Unremarkable. OTHER FINDINGS: None . IMPRESSION: 1. Hepatic steatosis without focal mass or intrahepatic biliary dilatation appreciable. Other infiltrative process not excluded. 2. Partial imaging of the pancreas as per above. 3. Prior cholecystectomy. Clinically correlate further.
[2018-02-26] MEDS: Digoxin 500 mcg/2ml (0.5 mg/2ml) Inj IV SCH (17:22)
[2018-02-26] MEDS ORDERED: diltiaZEM IVPB 100mg in NS 100 ML IV PRN (18:13)
--- NOTE | 2018-02-26 18:16 | PN ---
DATE: 02/26/2018 SUBJECTIVE: The patient is seen lying in bed in the ICU. She has a periodic retrosternal chest burning. She has also had short runs of nonsustained ventricular tachycardia. She felt somewhat weak and lightheaded when sitting in a chair earlier. At the present time, she was noted to be in atrial fibrillation with rapid ventricular response of 160 beats per minute. CURRENT MEDICATIONS: Include aspirin, Brilinta 90 mg b.i.d., carvedilol 6.25 mg b.i.d., Pepcid 20 mg daily and Zestril 5 mg daily as well as Reglan. She did have some nausea and vomiting yesterday. PHYSICAL EXAMINATION: GENERAL: She is an anxious-appearing middle-aged woman. VITAL SIGNS: Blood pressure is 120/76 with a pulse of 160 in atrial fibrillation, respirations are 16 and she is afebrile. HEENT: No JVD. CHEST: Bilateral scattered rhonchi. HEART: PMI displaced laterally with soft tones noted and rhythm is irregular regular and rapid. ABDOMEN: Soft and nontender with bowel sounds. EXTREMITIES: No edema. DIAGNOSTIC DATA: Troponin is 53.9. Potassium 4.6, BUN and creatinine 16 and 0.9. White count 11.7, hemoglobin and hematocrit 13.2 and 41.1 with platelet count of 193,000. AST and ALT improved to 378 and 98. Bilirubin is negative and alkaline phosphatase 72. Echocardiogram was reviewed and reveals borderline concentric LVH with normal LV size. LV systolic function with moderate to severely reduced with apical akinesis as well as anterior and anteroseptal hypokinesis, mild tricuspid regurgitation was present. IMPRESSION: 1. Acute anterior myocardial infarction status post emergency percutaneous coronary intervention of left anterior descending complicated by severe left ventricular dysfunction as well as atrial fibrillation nonsustained ventricular tachycardia. 2. Rapid atrial fibrillation. 3. Hyperlipidemia. 4. Elevated transaminases, appears to be improving likely secondary to passive congestion. 5. Severe left ventricular dysfunction, suspect stuttering pattern of infarct with some residual damage prior to her presentation given the fact that her troponin was negative on admission and her left ventricular function was as poor as it currently does. RECOMMENDATIONS: Carvedilol dose will be increased as tolerated, IV digoxin will be given for heart rate control and continued. If her atrial fibrillation is not controlled or persist or nonsustained ventricular tachycardia recurs, IV amiodarone will be initiated. The patient remained in the CCU for closer observation, followup enzymes and electrocardiogram will be planned as well. Further recommendations will be made based upon her clinical course. All the above was discussed in detail with the patient and her family at the bedside as well as her nurse and the ICU staff. We will follow along and make further recommendations as appropriate. Richy Melgoza MD
[2018-02-26] MEDS ORDERED: Amiodarone 150 mg/D5W 100 ml 150 MG/100 ML BAG IVPB ONE (18:33)
[2018-02-26] MEDS ORDERED: Amiodarone 150 mg/D5W 100 ml 150 MG/100 ML BAG ONE (18:43)
[2018-02-26] MEDS ORDERED: Amiodarone 360 mg/D5W 200 ml 360 MG/200 ML BAG IV SCH ×2 (18:45)
[2018-02-27] MEDS ORDERED: Amiodarone 360 mg/D5W 200 ml 360 MG/200 ML BAG IV SCH (00:45)
[2018-02-27] MEDS: Digoxin 500 mcg/2ml (0.5 mg/2ml) Inj IV SCH (03:52)
[2018-02-27] MEDS ORDERED: Digoxin 500 mcg/2ml (0.5 mg/2ml) Inj ONE (03:54)
[2018-02-27 04:01] VITALS: PULSE 68
[2018-02-27 07:32] LABS: ALB/GLOB RATIO 1.2 (1.1-1.8); ALBUMIN 3.6 g/dL (3.0-4.8); ALT/SGPT 78 U/L (7-56); AST/SGOT 202 U/L (14-36); BLOOD UREA NITROGEN 18 mg/dL (7-21); CALCIUM 9.2 mg/dL (8.4-10.5); GFR NON-AFRICAN AMERICAN > 60
[2018-02-27 07:56] LABS: BASO # 0.02 K/mm3 (0.0-2.0); BASO % 0.2 % (0.0-3.0); EOS % 0.3 % (1.5-5.0); GRAN # 6.86 (1.4-6.5); GRAN % 67.1 % (50.0-68.0); HEMOGLOBIN 12.4 g/dL (12.0-16.0); LYMPH % 19.8 % (22.0-35.0); MEAN CELL VOLUME 89.2 fl (80.0-105.0); MEAN CORPUSCULAR HEMOGLOBIN 28.6 pg (25.0-35.0); MEAN PLATELET VOLUME 10.3 fl (7.0-11.0); MONO # 1.3 (0.1-0.6); MONO % 12.6 % (1.0-6.0); RBC 4.34 10^6/uL (3.5-6.1); RED CELL DISTRIBUTION WIDTH 13.4 % (11.5-14.5); WHITE BLOOD COUNT 10.2 10^3/uL (4.5-11.0)
--- NOTE | 2018-02-27 07:58 | CP.CCUPN ---
<Kevin Haley - Last Filed: 02/27/18 11:34> CCU Subjective - Physician Review Subjective (Free Text): 02/27/18 11:13 Genaro Haley PGY2 - ICU Progress Note Patient is seen and examined this AM. No acute events reported overnight. Patient indicates some nausea. Denies chest pain, shortness of breath, abdominal pain, nausea, vomiting, chills. Patient tolerating diet and medications. CCU Objective - Vital Signs / Intake & Output Vital Signs (Last 4 hours): Vital Signs Temp Pulse Resp BP Pulse Ox 02/27/18 07:01 62 19 123/59 L 97 02/27/18 07:00 62 17 98 02/27/18 06:01 63 25 H 112/58 L 97 02/27/18 06:00 62 21 97 02/27/18 05:50 98.3 F 64 21 114/58 L 97 02/27/18 05:43 98.3 F 63 20 02/27/18 05:42 64 02/27/18 05:01 67 18 114/58 L 94 L 02/27/18 05:00 66 20 93 L 02/27/18 04:01 68 22 116/54 L 95 02/27/18 04:00 67 21 95 Intake and Output (Last 8hrs): Intake & Output 02/26/18 02/27/18 02/27/18 22:59 06:59 14:59 Intake Total 835 586 Output Total 1000 500 Balance -165 86 Intake: IV 175 346 Amiodarone 100 346 IVF 75 Oral 660 240 Output: Urine 1000 500 Urine, Voided 1000 500 Other: # Voids Urine, Voided 3 # Bowel Movements 0 - Physical Exam Head: Positive for: Atraumatic, Normocephalic Pupils: Positive for: PERRL Extroacular Muscles: Positive for: EOMI Conjunctiva: Positive for: Normal Mouth: Positive for: Moist Mucous Membranes Neck: Positive for: Normal Range of Motion Respiratory/Chest: Positive for: Clear to Auscultation, Good Air Exchange. Negative for: Respiratory Distress, Accessory Muscle Use Cardiovascular: Positive for: Regular Rate and Rhythm, Normal S1, S2. Negative for: Murmurs Abdomen: Negative for: Tenderness, Distention, Peritoneal Signs Back: Positive for: Normal Inspection Upper Extremity: Positive for: Normal Inspection. Negative for: Cyanosis, Edema Lower Extremity: Positive for: Normal Inspection, Other (right lower extremity groin region without hematoma, swelling and minimal ecchymosis, ). Negative for: Edema Neurological: Positive for: GCS=15, CN II-XII Intact, Speech Normal Skin: Positive for: Warm, Normal Color, Diaphoretic. Negative for: Rashes Psychiatric: Positive for: Alert, Oriented x 3, Normal Insight, Normal Concentration - Medications Active Medications: Active Medications Generic Name Dose Route Start Last Admin Trade Name Freq PRN Reason Stop Dose Admin Aspirin 81 mg 02/25/18 10:00 02/26/18 09:25 Aspirin Chewable PO 81 mg DAILY [facility] Administration Atorvastatin Calcium 80 mg 02/25/18 17:00 Lipitor PO DIN [facility] Carvedilol 12.5 mg 02/26/18 12:09 02/26/18 17:21 Coreg PO 12.5 mg BID [facility] Administration Digoxin 0.25 mg 02/27/18 14:00 Lanoxin PO 1400 [facility] Docusate Sodium 100 mg 02/25/18 10:00 02/26/18 17:21 Colace PO 100 mg BID [facility] Administration Famotidine 20 mg 02/27/18 10:00 Pepcid PO DAILY [facility] Heparin Sodium (Porcine) 5,000 units 02/26/18 22:00 02/27/18 05:36 Heparin SC 5,000 units Q8 [facility] Administration Protocol Amiodarone HCl/Dextrose 360 mg in 200 mls @ 33.333 mls/hr 02/26/18 18:45 02/26/18 18:48 Nexterone 360 Mg In D5w 200 Ml (Premix) IV 33.333 mls/hr .Q6H [facility]LE Administration Protocol 1 MG/MIN Amiodarone HCl/Dextrose 360 mg in 200 mls @ 16.667 mls/hr 02/27/18 00:45 02/27/18 00:54 Nexterone 360 Mg In D5w 200 Ml (Premix) IV 16.667 mls/hr .Q12H [facility] Administration Protocol 0.5 MG/MIN Lisinopril 5 mg 02/26/18 10:00 02/26/18 17:21 Zestril PO 5 mg DAILY [facility] Administration Metoclopramide HCl 5 mg 02/25/18 22:27 Reglan IVP Q6H PRN Nausea/Vomiting Ondansetron HCl 4 mg 02/25/18 18:00 02/25/18 17:18 Zofran Inj IVP 4 mg Q6H PRN Administration Nausea/Vomiting Ticagrelor 90 mg 02/25/18 10:00 02/26/18 17:21 Brilinta PO 90 mg BID [facility] Administration - Patient Studies Lab Studies: Microbiology Studies 02/25/18 00:25 MRSA Culture (Admit) - Final Nose MRSA NOT DETECTED Lab Studies 02/27/18 02/27/18 Range/Units 07:30 05:40 WBC 10.2 (4.5-11.0) 10^3/uL RBC 4.34 (3.5-6.1) 10^6/uL Hgb 12.4 (12.0-16.0) g/dL Hct 38.7 (36.0-48.0) % MCV 89.2 (80.0-105.0) fl MCH 28.6 (25.0-35.0) pg MCHC 32.0 (31.0-37.0) g/dl RDW 13.4 (11.5-14.5) % Plt Count 181 (120.0-450.0) 10^3/uL MPV 10.3 (7.0-11.0) fl Gran % 67.1 (50.0-68.0) % Lymph % (Auto) 19.8 L (22.0-35.0) % [place] % (Auto) 12.6 H (1.0-6.0) % Eos % (Auto) 0.3 L (1.5-5.0) % Baso % (Auto) 0.2 (0.0-3.0) % Gran # 6.86 H (1.4-6.5) Lymph # (Auto) 2.0 (1.2-3.4) [place] # (Auto) 1.3 H (0.1-0.6) Eos # (Auto) 0.0 (0.0-0.7) Baso # (Auto) 0.02 (0.0-2.0) K/mm3 Sodium 139 (132-148) mmol/L Potassium 4.0 (3.6-5.0) mmol/L Chloride 105 (98-107) mmol/L Carbon Dioxide 31 (21-33) mmol/L Anion Gap 7 L (10-20) BUN 18 (7-21) mg/dL Creatinine 0.9 (0.7-1.2) mg/dl Est GFR ( Amer) > 60 Est GFR (Non-Af Amer) > 60 Random Glucose 98 (70-110) mg/dL Calcium 9.2 (8.4-10.5) mg/dL Total Bilirubin 1.1 (0.2-1.3) mg/dL AST 202 H D (14-36) U/L ALT 78 H (7-56) U/L Alkaline Phosphatase 72 (38-126) U/L Troponin I 28.90 H* D ng/mL Total Protein 6.5 (5.8-8.3) g/dL Albumin 3.6 (3.0-4.8) g/dL Globulin 2.9 gm/dL Albumin/Globulin Ratio 1.2 (1.1-1.8) Laboratory Results - last 24 hr 02/27/18 02/27/18 05:40 07:30 WBC 10.2 RBC 4.34 Hgb 12.4 Hct 38.7 MCV 89.2 MCH 28.6 MCHC 32.0 RDW 13.4 Plt Count 181 MPV 10.3 Gran % 67.1 Lymph % (Auto) 19.8 L [place] % (Auto) 12.6 H Eos % (Auto) 0.3 L Baso % (Auto) 0.2 Gran # 6.86 H Lymph # (Auto) 2.0 [place] # (Auto) 1.3 H Eos # (Auto) 0.0 Baso # (Auto) 0.02 Sodium 139 Potassium 4.0 Chloride 105 Carbon Dioxide 31 Anion Gap 7 L BUN 18 Creatinine 0.9 Est GFR ( Amer) > 60 Est GFR (Non-Af Amer) > 60 Random Glucose 98 Calcium 9.2 Total Bilirubin 1.1 AST 202 H D ALT 78 H Alkaline Phosphatase 72 Troponin I 28.90 H* D Total Protein 6.5 Albumin 3.6 Globulin 2.9 Albumin/Globulin Ratio 1.2 Radiology Impressions: Radiology Impressions Abdomen Ultrasound 02/26/18 09:34 IMPRESSION: 1. Hepatic steatosis without focal mass or intrahepatic biliary dilatation appreciable. Other infiltrative process not excluded. 2. Partial imaging of the pancreas as per above. 3. Prior cholecystectomy. Clinically correlate further. EKG/Cardiology Studies: Cardiology / EKG Studies 02/26/18 08:00 EKG [ELECTROCARDIOGRAM] Routine Comment: Reason For Exam: Chest pain Review of Systems - Review of Systems All systems: reviewed and no additional remarkable complaints except (as mentioned in HPI) Critical Care Progress Note - Nutrition Nutrition: Nutrition Category Date Time Status Heart Healthy Diet [DIET] Diets 02/25/18 Breakfast Active Assessment/Plan - Assessment and Plan (Free Text) Assessment: 67 year old female with past medical history of hypoglycemia and anxiety who presented with severe chest pain 1 hour in onset, admitted and taken for C with Dr. 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 Patient has been monitored in ICU for >24 hours with periodic episodes this AM of ventricular tachycardias and atrial fibrillation Plan: Neuro: AAOx3 Monitor mentation Cardio: Acute anterior NM s/p PCI -C showing LAD and LCA disease, PCIx2 of LAD -EF 45% -continue ASA, Brillinta, coreg BID, Lipitor -Lisinopril 5mg -Cardiology consulted and following Atrial Fibrillation with evidence of ventricular tachycardia episodes s/p cath Atrial Firbillation with RVR -likely secondary to reperfusion -Digoxin load 0.25mg Q6H followed by 0.25mg daily -Carvedilol 12.5mg BID HLD (TG 224, CH 220, LDL 132) -Lipitor still on hold 2/2 elevated LFT -HHD Pulm: -Maintain SaO2 >92% -Supplemental O2 as needed Renal: -Maintain euvolemia, replete electrolytes as needed -Cont to monitor GI: Elevated LFT s/p acute NM s/p cath -LFT continue to trend downward over past 48 hours -LFT wnl on admission -Etiology possibly secondary to hypovolemic 2/2 acute NM -IV zofran 4mg Q6H PRN -IV reglan PRN -GI ppx -HHD ID: Afebrile, mild leukocytosis likely stress related -Montor CBC, temperature, GI symptoms Psych: Anxiety -Continue to monitor GI/DVT ppx -Protonix -Heparin Patient seen, case and plan discussed with attending Dr. Davila <Jaskaran Davila - Last Filed: 02/27/18 12:01> CCU Objective - Vital Signs / Intake & Output Vital Signs (Last 4 hours): Vital Signs Pulse Resp BP Pulse Ox 02/27/18 11:19 60 115/75 02/27/18 11:01 58 L 21 107/75 96 02/27/18 11:00 59 L 24 97 02/27/18 10:01 60 12 101/49 L 98 02/27/18 10:00 58 L 21 97 02/27/18 09:15 65 113/61 02/27/18 09:14 65 113/61 02/27/18 09:13 64 22 113/41 L 97 02/27/18 09:00 68 24 96 02/27/18 08:01 63 25 H 108/58 L 98 02/27/18 08:00 62 24 97 Intake and Output (Last 8hrs): Intake & Output 02/26/18 02/27/18 02/27/18 22:59 06:59 14:59 Intake Total 835 586 Output Total 1000 500 Balance -165 86 Intake: IV 175 346 Amiodarone 100 346 IVF 75 Oral 660 240 Output: Urine 1000 500 Urine, Voided 1000 500 Other: # Voids Urine, Voided 3 # Bowel Movements 0 - Medications Active Medications: Active Medications Generic Name Dose Route Start Last Admin Trade Name Freq PRN Reason Stop Dose Admin Amiodarone HCl 400 mg 02/27/18 11:00 02/27/18 11:19 Cordarone PO 400 mg BID CHERELLE Administration Aspirin 81 mg 02/25/18 10:00 02/27/18 09:12 Aspirin Chewable PO 81 mg DAILY CHERELLE Administration Atorvastatin Calcium 80 mg 02/25/18 17:00 Lipitor PO DIN [facility] Carvedilol 12.5 mg 02/26/18 12:09 02/27/18 09:14 Coreg PO 12.5 mg BID CHERELLE Administration Docusate Sodium 100 mg 02/25/18 10:00 02/27/18 09:12 Colace PO 100 mg BID CHERELLE Administration Famotidine 20 mg 02/27/18 10:00 02/27/18 09:12 Pepcid PO 20 mg DAILY CHERELLE Administration Heparin Sodium (Porcine) 5,000 units 02/26/18 22:00 02/27/18 05:36 Heparin SC 5,000 units Q8 CHERELLE Administration Protocol Lisinopril 5 mg 02/26/18 10:00 02/27/18 09:15 Zestril PO 5 mg DAILY CHERELLE Administration Metoclopramide HCl 5 mg 02/25/18 22:27 Reglan IVP Q6H PRN Nausea/Vomiting Ondansetron HCl 4 mg 02/25/18 18:00 02/25/18 17:18 Zofran Inj IVP 4 mg Q6H PRN Administration Nausea/Vomiting Ticagrelor 90 mg 02/25/18 10:00 02/27/18 09:12 Brilinta PO 90 mg BID CHERELLE Administration - Patient Studies Lab Studies: Microbiology Studies 02/25/18 00:25 MRSA Culture (Admit) - Final Nose MRSA NOT DETECTED Lab Studies 02/27/18 02/27/18 Range/Units 07:30 05:40 WBC 10.2 (4.5-11.0) 10^3/uL RBC 4.34 (3.5-6.1) 10^6/uL Hgb 12.4 (12.0-16.0) g/dL Hct 38.7 (36.0-48.0) % MCV 89.2 (80.0-105.0) fl MCH 28.6 (25.0-35.0) pg MCHC 32.0 (31.0-37.0) g/dl RDW 13.4 (11.5-14.5) % Plt Count 181 (120.0-450.0) 10^3/uL MPV 10.3 (7.0-11.0) fl Gran % 67.1 (50.0-68.0) % Lymph % (Auto) 19.8 L (22.0-35.0) % [place] % (Auto) 12.6 H (1.0-6.0) % Eos % (Auto) 0.3 L (1.5-5.0) % Baso % (Auto) 0.2 (0.0-3.0) % Gran # 6.86 H (1.4-6.5) Lymph # (Auto) 2.0 (1.2-3.4) [place] # (Auto) 1.3 H (0.1-0.6) Eos # (Auto) 0.0 (0.0-0.7) Baso # (Auto) 0.02 (0.0-2.0) K/mm3 Sodium 139 (132-148) mmol/L Potassium 4.0 (3.6-5.0) mmol/L Chloride 105 (98-107) mmol/L Carbon Dioxide 31 (21-33) mmol/L Anion Gap 7 L (10-20) BUN 18 (7-21) mg/dL Creatinine 0.9 (0.7-1.2) mg/dl Est GFR ( Amer) > 60 Est GFR (Non-Af Amer) > 60 Random Glucose 98 (70-110) mg/dL Calcium 9.2 (8.4-10.5) mg/dL Total Bilirubin 1.1 (0.2-1.3) mg/dL AST 202 H D (14-36) U/L ALT 78 H (7-56) U/L Alkaline Phosphatase 72 (38-126) U/L Troponin I 28.90 H* D ng/mL Total Protein 6.5 (5.8-8.3) g/dL Albumin 3.6 (3.0-4.8) g/dL Globulin 2.9 gm/dL Albumin/Globulin Ratio 1.2 (1.1-1.8) Laboratory Results - last 24 hr 02/27/18 02/27/18 05:40 07:30 WBC 10.2 RBC 4.34 Hgb 12.4 Hct 38.7 MCV 89.2 MCH 28.6 MCHC 32.0 RDW 13.4 Plt Count 181 MPV 10.3 Gran % 67.1 Lymph % (Auto) 19.8 L [place] % (Auto) 12.6 H Eos % (Auto) 0.3 L Baso % (Auto) 0.2 Gran # 6.86 H Lymph # (Auto) 2.0 [place] # (Auto) 1.3 H Eos # (Auto) 0.0 Baso # (Auto) 0.02 Sodium 139 Potassium 4.0 Chloride 105 Carbon Dioxide 31 Anion Gap 7 L BUN 18 Creatinine 0.9 Est GFR ( Amer) > 60 Est GFR (Non-Af Amer) > 60 Random Glucose 98 Calcium 9.2 Total Bilirubin 1.1 AST 202 H D ALT 78 H Alkaline Phosphatase 72 Troponin I 28.90 H* D Total Protein 6.5 Albumin 3.6 Globulin 2.9 Albumin/Globulin Ratio 1.2 Radiology Impressions: Radiology Impressions Abdomen Ultrasound 02/26/18 09:34 IMPRESSION: 1. Hepatic steatosis without focal mass or intrahepatic biliary dilatation appreciable. Other infiltrative process not excluded. 2. Partial imaging of the pancreas as per above. 3. Prior cholecystectomy. Clinically correlate further. Critical Care Progress Note - Nutrition Nutrition: Nutrition Category Date Time Status Heart Healthy Diet [DIET] Diets 02/25/18 Breakfast Active Attending/Attestation - Attestation I have personally seen and examined this patient.: Yes I have fully participated in the care of the patient.: Yes I have reviewed all pertinent clinical information: Yes Notes (Text): 02/27/18 11:58 The patient was seen and examined at the bedside. Patient care was discussed with resident Medical records, lab studies were reviewed and management issues were discussed and formulated. Agree with above treatment plans as outlined in 's note with addition of the following: STEMI \ Afib \ CAD \ Elevated LFT -hemodynamic monitoring to maintain MAP>65 -f\u serial CE and ECG -continue ACS medications (Asa, Brilinta, BBlocker and CLYDE) -start statin once LFT improve -continue amiodarone as per cardiology team f\u -o2 supplementation to maintain Spo2>90 Pao2>60; currently comfortable on NC -f\u Bun\Cr and U\o -PO diet (cardiac ) and aspiration precautions -f\u serial LFT -PT\OT eval -DVT \ PUD prophylaxis CCM f\u 26min
--- NOTE | 2018-02-27 08:56 | CARD ---
APPROVED REPORT Date of service: 02/26/2018 EKG Measurement Heart [id number] <Conclusion> Sinus tachycardia with consecutive premature supraventricular complexes Low voltage QRS Incomplete right bundle branch block Left anterior fascicular block Anteroseptal infarct, likely recent or acute Abnormal ECG
[2018-02-27 12:13] LABS: BLOOD UREA NITROGEN 19 mg/dL (7-21); CALCIUM 9.6 mg/dL (8.4-10.5); GFR NON-AFRICAN AMERICAN > 60
--- NOTE | 2018-02-27 12:40 | CP.PCM.PN ---
<Guerrero Candelaria - Last Filed: 02/27/18 12:37> Subjective - Date & Time of Evaluation Date of Evaluation: 02/27/18 Time of Evaluation: 09:30 - Subjective Subjective: Guerrero Candelaria Y1 [facility] Progress Note Patient seen and examined at bedside this AM. Started on amiodarone drip after episodes of afib with RVR and vtac. HR today 60-70. Tolerating diet without any complaints. Denies CP, nausea, vomiting and abdominal pain. Objective - Vital Signs/Intake and Output Vital Signs (last 24 hours): Temp Pulse Resp BP Pulse Ox 98.3 F 60 21 115/75 96 02/27/18 05:50 02/27/18 11:19 02/27/18 11:01 02/27/18 11:19 02/27/18 11:01 Intake and Output: 02/27/18 02/27/18 06:59 18:59 Intake Total 586 Output Total 500 Balance 86 - Medications Medications: Current Medications Amiodarone HCl (Cordarone) 400 mg PO BID [facility] Last Admin: 02/27/18 11:19 Dose: 400 mg Aspirin (Aspirin Chewable) 81 mg PO DAILY [facility] Last Admin: 02/27/18 09:12 Dose: 81 mg Atorvastatin Calcium (Lipitor) 80 mg PO DIN [facility] Carvedilol (Coreg) 12.5 mg PO BID [facility] Last Admin: 02/27/18 09:14 Dose: 12.5 mg Docusate Sodium (Colace) 100 mg PO BID [facility] Last Admin: 02/27/18 09:12 Dose: 100 mg Famotidine (Pepcid) 20 mg PO DAILY [facility] Last Admin: 02/27/18 09:12 Dose: 20 mg Heparin Sodium (Porcine) (Heparin) 5,000 units SC Q8 [facility]; Protocol Last Admin: 02/27/18 05:36 Dose: 5,000 units Lisinopril (Zestril) 5 mg PO DAILY [facility] Last Admin: 02/27/18 09:15 Dose: 5 mg Metoclopramide HCl (Reglan) 5 mg IVP Q6H PRN PRN Reason: Nausea/Vomiting Ondansetron HCl (Zofran Inj) 4 mg IVP Q6H PRN PRN Reason: Nausea/Vomiting Last Admin: 02/25/18 17:18 Dose: 4 mg Ticagrelor (Brilinta) 90 mg PO BID [facility] Last Admin: 02/27/18 09:12 Dose: 90 mg - Labs Labs: 02/27/18 07:30 02/27/18 11:50 PT 10.8 SECONDS (9.4-12.5) 02/24/18 22:48 INR 0.95 02/24/18 22:48 - Additional Findings Additional findings: - Constitutional Appears: No Acute Distress - Head Exam Head Exam: ATRAUMATIC, NORMAL INSPECTION - Eye Exam Eye Exam: EOMI Pupil Exam: PERRL - ENT Exam ENT Exam: Mucous Membranes Moist - Neck Exam Neck Exam: Normal Inspection - Respiratory Exam Respiratory Exam: Clear to Ausculation Bilateral. absent: Accessory Muscle Use, Wheezes, Respiratory Distress - Cardiovascular Exam Cardiovascular Exam: REGULAR RHYTHM, +S1, +S2. No tachycardia - GI/Abdominal Exam GI & Abdominal Exam: Soft, Normal Bowel Sounds. absent: Guarding, Tenderness - Extremities Exam Extremities Exam: Normal Inspection. 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 In the ER patient's EKG revealed anterior wall NC with reciprocal changes. Code HEART called and patient was rushed to paving and surfacing labourer. Patient had 2 JANE placed in LAD. Patient transferred to CCU for further management. Plan: Afib with RVR -controlled HR controlled with amiodarone drip -CHADsVasc is 3 - need anticoagulation -will follow cardiology recommendations Anterior Wall NC -initial EKG showed anterior wall NC with reciprocal changes -s/p cath with 2 JANE stents in the LAD on 02/24/18 -continue ASA, brilinta for one year -carvedilol 12.5 mg BID -started on lisinopril 5mg -started on digoxin 0.25mg -echo shows borderline LVH, moderate to severe reduced LV systolic function -A1c WNL, TSH WNL -cardiology on consult, Dr. Ayala -PT eval Transaminitis -LFT's downtrending -Abd US showed hepatic steatosis, pancreatic tail obscured by gas -statin on hold HLD -abnormal lipid panel -holding statin 2/2 high LFT's, will resume once resolved Hypokalemia - resolved -will monitor PPX/Diet -pepcid, heparin -Heart healthy diet Patient seen and case discussed with attending, Dr. Holm <Santi Holm - Last Filed: 02/28/18 15:58> Objective - Vital Signs/Intake and Output Vital Signs (last 24 hours): Temp Pulse Resp BP Pulse Ox 97.1 F L 59 L 21 132/68 96 02/28/18 12:00 02/28/18 12:00 02/28/18 12:00 02/28/18 12:00 02/28/18 00:00 Intake and Output: 02/28/18 02/28/18 06:59 18:59 Intake Total 900 Output Total 650 Balance 250 - Medications Medications: Current Medications Amiodarone HCl (Cordarone) 200 mg PO BID [facility] Last Admin: 02/28/18 11:32 Dose: 200 mg Aspirin (Aspirin Chewable) 81 mg PO DAILY [facility] Last Admin: 02/28/18 11:45 Dose: 81 mg Atorvastatin Calcium (Lipitor) 80 mg PO DIN [facility] Carvedilol (Coreg) 12.5 mg PO BID [facility] Last Admin: 02/28/18 11:45 Dose: 12.5 mg Docusate Sodium (Colace) 100 mg PO BID [facility] Last Admin: 02/28/18 11:37 Dose: 100 mg Famotidine (Pepcid) 20 mg PO DAILY [facility] Last Admin: 02/28/18 11:40 Dose: 20 mg Heparin Sodium (Porcine) (Heparin) 5,000 units SC Q8 [facility]; Protocol Last Admin: 02/28/18 05:39 Dose: 5,000 units Lisinopril (Zestril) 5 mg PO DAILY [facility] Last Admin: 02/28/18 11:37 Dose: 5 mg Metoclopramide HCl (Reglan) 5 mg IVP Q6H PRN PRN Reason: Nausea/Vomiting Ondansetron HCl (Zofran Inj) 4 mg IVP Q6H PRN PRN Reason: Nausea/Vomiting Last Admin: 02/25/18 17:18 Dose: 4 mg Ticagrelor (Brilinta) 90 mg PO BID [facility] Last Admin: 02/28/18 11:45 Dose: 90 mg - Labs Labs: 02/28/18 07:00 02/28/18 07:00 PT 10.8 SECONDS (9.4-12.5) 02/24/18 22:48 INR 0.95 02/24/18 22:48 Attending/Attestation - Attestation I have personally seen and examined this patient.: Yes I have fully participated in the care of the patient.: Yes I have reviewed all pertinent clinical information, including history, physical exam and plan: Yes Notes (Text): 02/28/18 15:58 Medical record note made by the resident after discussion with my direction and input after the patient was personally seen and examined by me. I have reviewed the chart and agree that the record accurately reflects by personal performance of the history, physical exam, data review, and medical decision-making, in the course for the patient. I have also personally directed the plan of care.
[2018-02-27] MEDS ORDERED: Digoxin 250 mcg (0.25 mg) Tab PO SCH (14:00)
--- NOTE | 2018-02-27 15:18 | PN ---
DATE: 02/27/2018 SUBJECTIVE: The patient is feeling significantly better today. She has no chest pain. She remains in sinus rhythm. She is on IV amiodarone at this time. Followup troponin is 28.9. CURRENT MEDICATIONS: Include; aspirin, Brilinta, carvedilol 12.5 mg b.i.d., subcutaneous heparin, Lipitor 80 mg daily but this is currently on hold, IV amiodarone, Pepcid, Reglan, Zestril, and Zofran. OBJECTIVE: GENERAL: She is a overweight middle-aged woman. VITAL SIGNS: Blood pressure is 100/50 with a pulse of 60 in sinus, respirations 16. She is afebrile. HEENT: No JVD. CHEST: Few scattered rhonchi. HEART: PMI displaced laterally with soft tones noted. ABDOMEN: Soft and nontender with normoactive bowel sounds. EXTREMITIES: No edema. DIAGNOSTIC DATA: Potassium 4, BUN and creatinine 18 and 0.9. White count 10.2, hemoglobin and hematocrit 12.4 and 38.7 with platelet count 181,000. Troponin 28.9. AST 202 and ALT 78. IMPRESSION: 1. Anterior myocardial fraction complicated by the congestive heart failure and ventricular dysrhythmias status post emergent percutaneous coronary intervention of left anterior descending. 2. Severe residual left ventricular dysfunction. 3. Elevated transaminases, possibly secondary to shock liver clinically improved. 4. Hyperlipidemia. RECOMMENDATIONS: Oral amiodarone will be initiated at this time, IV administration will be discontinued. Beta-ling therapy will continue for now. Digoxin will be placed on hold and transfer to telemetry today is planned. Increase activity as tolerated is advised. Reassessment of her left ventricular function in 90 days will be necessary and if her ejection fraction remains below 35%, prophylactic ICD implant should be considered. Assuming her transaminases continue to fall, statin therapy will be resumed tomorrow. We will follow along as needed. Richy Melgoza MD
[2018-02-28 07:49] LABS: BASO # 0.02 K/mm3 (0.0-2.0); BASO % 0.2 % (0.0-3.0); EOS # 0.1 (0.0-0.7); EOS % 0.8 % (1.5-5.0); GRAN # 5.46 (1.4-6.5); GRAN % 66.3 % (50.0-68.0); HEMOGLOBIN 11.9 g/dL (12.0-16.0); LYMPH # 1.7 (1.2-3.4); LYMPH % 20.1 % (22.0-35.0); MEAN CELL VOLUME 87.4 fl (80.0-105.0); MEAN CORPUSCULAR HEMOGLOBIN 27.9 pg (25.0-35.0); MEAN CORPUSCULAR HGB CONC 31.9 g/dl (31.0-37.0); MEAN PLATELET VOLUME 10.2 fl (7.0-11.0); MONO % 12.6 % (1.0-6.0); RBC 4.27 10^6/uL (3.5-6.1); RED CELL DISTRIBUTION WIDTH 13.3 % (11.5-14.5); WHITE BLOOD COUNT 8.3 10^3/uL (4.5-11.0)
[2018-02-28 08:14] LABS: ALB/GLOB RATIO 1.3 (1.1-1.8); ALBUMIN 3.7 g/dL (3.0-4.8); ALT/SGPT 68 U/L (7-56); AST/SGOT 114 U/L (14-36); BLOOD UREA NITROGEN 21 mg/dL (7-21); CALCIUM 9.2 mg/dL (8.4-10.5); GFR NON-AFRICAN AMERICAN 55
--- NOTE | 2018-02-28 09:22 | PN ---
DATE: 02/28/2018 SUBJECTIVE: The patient is seen lying in bed on telemetry. She feels significantly better. She remains in sinus rhythm. She did ambulate somewhat yesterday. CURRENT MEDICATIONS: Include amiodarone 40 mg twice a day, carvedilol 12.5 mg twice a day, subcutaneous heparin, Pepcid, Reglan p.r.n., Zestril. The Lipitor has been on hold. OBJECTIVE: GENERAL: She is an overweight middle-aged woman. VITAL SIGNS: Blood pressure was 102/56 with pulse 66, respirations are 14. She is in sinus rhythm. HEENT: No JVD. CHEST: Clear to auscultation and percussion. HEART: PMI displaced laterally with a systolic murmur left sternal border. Heart tones are soft. ABDOMEN: Soft and nontender with normoactive bowel sounds. EXTREMITIES: No edema. DIAGNOSTIC DATA: White count is 8.3, hemoglobin and hematocrit 11.9 and 37.3 with a platelet count 176,000. BNP is pending. Troponin is pending as well. IMPRESSION: 1. Status post anterior wall myocardial infraction complicated by transient shock ventricular tachycardia in atrial fibrillation, clinically improved. 2. Severe residual left ventricular dysfunction. 3. Hyperlipidemia. RECOMMENDATIONS: At this time, her amiodarone dose will be reduced to 200 mg twice a day. This will be tapered further as an outpatient as able. Her statin therapy will be resumed today. Increased ambulation is advised. CLYDE inhibitor and beta ling therapy will continue as well. She will remain on aspirin and Brilinta as well. Pending labs will be monitored. Assuming she remains stable, discharge home tomorrow with close outpatient followup will be arranged. The need for post myocardial infraction restrictions and standard precautions were discussed with her. Richy Melgoza MD
--- NOTE | 2018-02-28 11:43 | CP.PCM.PN ---
<Guerrero Candelaria - Last Filed: 02/28/18 11:37> Subjective - Date & Time of Evaluation Date of Evaluation: 02/28/18 Time of Evaluation: 07:30 - Subjective Subjective: Guerrero Candelaria Y1 [facility] Progress Note Patient seen and examined at bedside this AM. No acute events overnight. Switched to PO amiodarone. Tolerating diet without any complaints. Denies CP, nausea, vomiting and abdominal pain. Possible discharge tomorrow. Objective - Vital Signs/Intake and Output Vital Signs (last 24 hours): Temp Pulse Resp BP Pulse Ox 98.2 F 66 18 103/57 L 96 02/28/18 00:00 02/28/18 02:00 02/28/18 00:00 02/28/18 00:00 02/28/18 00:00 Intake and Output: 02/28/18 02/28/18 06:59 18:59 Intake Total 900 Output Total 650 Balance 250 - Medications Medications: Current Medications Amiodarone HCl (Cordarone) 200 mg PO BID [facility] Aspirin (Aspirin Chewable) 81 mg PO DAILY [facility] Last Admin: 02/27/18 09:12 Dose: 81 mg Atorvastatin Calcium (Lipitor) 80 mg PO DIN [facility] Carvedilol (Coreg) 12.5 mg PO BID [facility] Last Admin: 02/27/18 18:22 Dose: 12.5 mg Docusate Sodium (Colace) 100 mg PO BID [facility] Last Admin: 02/27/18 18:23 Dose: 100 mg Famotidine (Pepcid) 20 mg PO DAILY [facility] Last Admin: 02/27/18 09:12 Dose: 20 mg Heparin Sodium (Porcine) (Heparin) 5,000 units SC Q8 [facility]; Protocol Last Admin: 02/28/18 05:39 Dose: 5,000 units Lisinopril (Zestril) 5 mg PO DAILY [facility] Last Admin: 02/27/18 09:15 Dose: 5 mg Metoclopramide HCl (Reglan) 5 mg IVP Q6H PRN PRN Reason: Nausea/Vomiting Ondansetron HCl (Zofran Inj) 4 mg IVP Q6H PRN PRN Reason: Nausea/Vomiting Last Admin: 02/25/18 17:18 Dose: 4 mg Ticagrelor (Brilinta) 90 mg PO BID [facility] Last Admin: 02/27/18 18:22 Dose: 90 mg - Labs Labs: 02/28/18 07:00 02/28/18 07:00 PT 10.8 SECONDS (9.4-12.5) 02/24/18 22:48 INR 0.95 02/24/18 22:48 - Additional Findings Additional findings: - Constitutional Appears: No Acute Distress - Head Exam Head Exam: ATRAUMATIC, NORMAL INSPECTION - Eye Exam Eye Exam: EOMI Pupil Exam: PERRL - ENT Exam ENT Exam: Mucous Membranes Moist - Neck Exam Neck Exam: Normal Inspection - Respiratory Exam Respiratory Exam: Clear to Ausculation Bilateral. absent: Accessory Muscle Use, Wheezes, Respiratory Distress - Cardiovascular Exam Cardiovascular Exam: REGULAR RHYTHM, +S1, +S2. No tachycardia - GI/Abdominal Exam GI & Abdominal Exam: Soft, Normal Bowel Sounds. absent: Guarding, Tenderness - Extremities Exam Extremities Exam: Normal Inspection. absent: Calf Tenderness, Tenderness Additional comments: Right groin insertion site is clean, dry, non bleeding and no discoloration noted - Neurological Exam Neurological Exam: Alert, CN II-XII Intact, Oriented x3 Assessment and Plan - Assessment and Plan (Free Text) Assessment: 67yo female PMHx hypoglycemia and anxiety BIBA with complaint of chest pain for 1 day worsening 1 hour [employer]. In the ER patient's EKG revealed anterior wall OR with reciprocal changes. Code HEART called and patient was rushed to lab analyst. Patient had 2 JANE placed in LAD. Patient transferred to CCU for further management. Plan: Afib with RVR -controlled HR controlled with amiodarone 200mg BID PO -per cardiology recommendations, no need for AC at this time due to occurrence within 48 hours of cardiac cath -will follow cardiology recommendations Anterior Wall OR -initial EKG showed anterior wall OR with reciprocal changes -s/p cath with 2 JANE stents in the LAD on 02/24/18 -continue ASA, brilinta for one year -continue carvedilol 12.5 mg BID -continue lisinopril 5mg -echo shows borderline LVH, moderate to severe reduced LV systolic function -A1c WNL, TSH WNL -cardiology on consult, Dr. Ayala -PT eval - discharge home -possible dc tomorrow Transaminitis -LFT's downtrending -Abd US showed hepatic steatosis, pancreatic tail obscured by gas HLD -abnormal lipid panel -continue statin Hypokalemia - resolved -will monitor PPX/Diet -pepcid, heparin -Heart healthy diet Patient seen and case discussed with attending, Dr. Holm <Santi Holm - Last Filed: 02/28/18 15:57> Objective - Vital Signs/Intake and Output Vital Signs (last 24 hours): Temp Pulse Resp BP Pulse Ox 97.1 F L 59 L 21 132/68 96 02/28/18 12:00 02/28/18 12:00 02/28/18 12:00 02/28/18 12:00 02/28/18 00:00 Intake and Output: 02/28/18 02/28/18 06:59 18:59 Intake Total 900 Output Total 650 Balance 250 - Medications Medications: Current Medications Amiodarone HCl (Cordarone) 200 mg PO BID [facility] Last Admin: 02/28/18 11:32 Dose: 200 mg Aspirin (Aspirin Chewable) 81 mg PO DAILY [facility] Last Admin: 02/28/18 11:45 Dose: 81 mg Atorvastatin Calcium (Lipitor) 80 mg PO DIN [facility] Carvedilol (Coreg) 12.5 mg PO BID [facility] Last Admin: 02/28/18 11:45 Dose: 12.5 mg Docusate Sodium (Colace) 100 mg PO BID [facility] Last Admin: 02/28/18 11:37 Dose: 100 mg Famotidine (Pepcid) 20 mg PO DAILY [facility] Last Admin: 02/28/18 11:40 Dose: 20 mg Heparin Sodium (Porcine) (Heparin) 5,000 units SC Q8 [facility]; Protocol Last Admin: 02/28/18 05:39 Dose: 5,000 units Lisinopril (Zestril) 5 mg PO DAILY [facility] Last Admin: 02/28/18 11:37 Dose: 5 mg Metoclopramide HCl (Reglan) 5 mg IVP Q6H PRN PRN Reason: Nausea/Vomiting Ondansetron HCl (Zofran Inj) 4 mg IVP Q6H PRN PRN Reason: Nausea/Vomiting Last Admin: 02/25/18 17:18 Dose: 4 mg Ticagrelor (Brilinta) 90 mg PO BID [facility] Last Admin: 02/28/18 11:45 Dose: 90 mg - Labs Labs: 02/28/18 07:00 02/28/18 07:00 PT 10.8 SECONDS (9.4-12.5) 02/24/18 22:48 INR 0.95 02/24/18 22:48 Attending/Attestation - Attestation I have personally seen and examined this patient.: Yes I have fully participated in the care of the patient.: Yes I have reviewed all pertinent clinical information, including history, physical exam and plan: Yes Notes (Text): 02/28/18 15:54 Medical record note made by the resident after discussion with my direction and input after the patient was personally seen and examined by me. I have reviewed the chart and agree that the record accurately reflects by personal performance of the history, physical exam, data review, and medical decision-making, in the course for the patient. I have also personally directed the plan of care. 67yo female PMHx hypoglycemia and anxiety BIBA with complaint of chest pain for 1 day worsening 1 hour [employer]. In the ER patient's EKG revealed anterior wall OR with reciprocal changes. Code HEART called and patient was rushed to lab analyst. Patient had 2 JANE placed in LAD. Patient ICU course was complicated by Transient episode of AF and VT.She was started on Amiodrone infusion followed by oral Amiodrone. Patient was also found to have elevated transaminase. Patient is feeling better.LFT are coming down. Continue ASA/Brilanta/Lisinopril and coreg.Once LFT improve, will add statin. case was discussed with cardiology, no need for anticoagulation as AF was transient. Management plan was discussed in detail with patient. Education was provided.
[2018-03-01 03:47] VITALS: RESP 19
[2018-03-01 05:58] VITALS: BP 118/64; PULSE 68; TEMP 98.2; O2SAT 98
[2018-03-01 07:11] LABS: BASO # 0.02 K/mm3 (0.0-2.0); BASO % 0.3 % (0.0-3.0); EOS # 0.1 (0.0-0.7); EOS % 1.7 % (1.5-5.0); GRAN # 4.05 (1.4-6.5); GRAN % 60.9 % (50.0-68.0); HEMOGLOBIN 11.6 g/dL (12.0-16.0); LYMPH # 1.7 (1.2-3.4); LYMPH % 25.4 % (22.0-35.0); MEAN CELL VOLUME 87.7 fl (80.0-105.0); MEAN CORPUSCULAR HEMOGLOBIN 28.6 pg (25.0-35.0); MEAN CORPUSCULAR HGB CONC 32.7 g/dl (31.0-37.0); MEAN PLATELET VOLUME 10.3 fl (7.0-11.0); MONO # 0.8 (0.1-0.6); MONO % 11.7 % (1.0-6.0); RBC 4.05 10^6/uL (3.5-6.1); RED CELL DISTRIBUTION WIDTH 13.5 % (11.5-14.5); WHITE BLOOD COUNT 6.7 10^3/uL (4.5-11.0)
[2018-03-01 07:41] LABS: ALB/GLOB RATIO 1.2 (1.1-1.8); ALBUMIN 3.4 g/dL (3.0-4.8); ALT/SGPT 59 U/L (7-56); AST/SGOT 69 U/L (14-36); BLOOD UREA NITROGEN 20 mg/dL (7-21); CALCIUM 9.3 mg/dL (8.4-10.5); GFR NON-AFRICAN AMERICAN 55
--- NOTE | 2018-03-01 10:27 | CP.PCM.DIS ---
<Guerrero Candelaria - Last Filed: 03/01/18 13:47> Provider - Provider Date of Admission: 02/24/18 22:58 Attending physician: Santi Holm MD Primary care physician: Brenda Barroso MD Consults: 02/24/18 23:03 Cardiology Consult Stat Comment: Consulting Provider: Richy Melgoza Consulting Physician: Richy Melgoza Reason for Consult: stemi Time Spent in preparation of Discharge (in minutes): 35 Hospital Course - Lab Results Lab Results: Micro Results 02/25/18 00:25 Nose MRSA Culture (Admit) - Final MRSA NOT DETECTED Most Recent Lab Values WBC 6.7 10^3/uL (4.5-11.0) 03/01/18 06:30 RBC 4.05 10^6/uL (3.5-6.1) 03/01/18 06:30 Hgb 11.6 g/dL (12.0-16.0) L 03/01/18 06:30 Hct 35.5 % (36.0-48.0) L 03/01/18 06:30 MCV 87.7 fl (80.0-105.0) 03/01/18 06:30 MCH 28.6 pg (25.0-35.0) 03/01/18 06:30 MCHC 32.7 g/dl (31.0-37.0) 03/01/18 06:30 RDW 13.5 % (11.5-14.5) 03/01/18 06:30 Plt Count 208 10^3/uL (120.0-450.0) 03/01/18 06:30 MPV 10.3 fl (7.0-11.0) 03/01/18 06:30 Gran % 60.9 % (50.0-68.0) 03/01/18 06:30 Lymph % (Auto) 25.4 % (22.0-35.0) 03/01/18 06:30 [place] % (Auto) 11.7 % (1.0-6.0) H 03/01/18 06:30 Eos % (Auto) 1.7 % (1.5-5.0) 03/01/18 06:30 Baso % (Auto) 0.3 % (0.0-3.0) 03/01/18 06:30 Gran # 4.05 (1.4-6.5) 03/01/18 06:30 Lymph # (Auto) 1.7 (1.2-3.4) 03/01/18 06:30 [place] # (Auto) 0.8 (0.1-0.6) H 03/01/18 06:30 Eos # (Auto) 0.1 (0.0-0.7) 03/01/18 06:30 Baso # (Auto) 0.02 K/mm3 (0.0-2.0) 03/01/18 06:30 PT 10.8 SECONDS (9.4-12.5) 02/24/18 22:48 INR 0.95 02/24/18 22:48 Sodium 139 mmol/L (132-148) 03/01/18 06:30 Potassium 4.6 mmol/L (3.6-5.0) 03/01/18 06:30 Chloride 106 mmol/L (98-107) 03/01/18 06:30 Carbon Dioxide 31 mmol/L (21-33) 03/01/18 06:30 Anion Gap 7 (10-20) L 03/01/18 06:30 BUN 20 mg/dL (7-21) 03/01/18 06:30 Creatinine 1.0 mg/dl (0.7-1.2) 03/01/18 06:30 Est GFR ( Amer) > 60 03/01/18 06:30 Est GFR (Non-Af Amer) 55 03/01/18 06:30 Random Glucose 96 mg/dL (70-110) 03/01/18 06:30 Hemoglobin A1c 5.3 % (4.2-6.5) 02/25/18 05:25 Calcium 9.3 mg/dL (8.4-10.5) 03/01/18 06:30 Phosphorus 2.5 mg/dL (2.5-4.5) 02/26/18 05:20 Magnesium 2.2 mg/dL (1.7-2.2) 02/26/18 05:20 Total Bilirubin 1.1 mg/dL (0.2-1.3) 03/01/18 06:30 AST 69 U/L (14-36) H D 03/01/18 06:30 ALT 59 U/L (7-56) H 03/01/18 06:30 Alkaline Phosphatase 73 U/L (38-126) 03/01/18 06:30 Lactate Dehydrogenase 504 U/L (333-699) 02/24/18 22:48 Total Creatine Kinase 40 U/L (35-230) 02/24/18 22:48 Troponin I 17.60 ng/mL H* D 02/28/18 07:00 Total Protein 6.2 g/dL (5.8-8.3) 03/01/18 06:30 Albumin 3.4 g/dL (3.0-4.8) 03/01/18 06:30 Globulin 2.8 gm/dL 03/01/18 06:30 Albumin/Globulin Ratio 1.2 (1.1-1.8) 03/01/18 06:30 Triglycerides 224 mg/dL (35-160) H 02/25/18 05:25 Cholesterol 229 mg/dL (130-200) H 02/25/18 05:25 LDL Cholesterol Direct 132 mg/dL (0-129) H 02/25/18 05:25 HDL Cholesterol 46 mg/dL (29-60) 02/25/18 05:25 Free T4 1.09 ng/dL (0.78-2.19) 02/25/18 05:25 TSH 3rd Generation 1.01 mIU/mL (0.46-4.68) 02/25/18 05:25 - Hospital Course Hospital Course: Upon admission, 67 year old female with PMH of hypoglycemia and anxiety BIBA with complaint of chest pain for 1 day worsening 1 hour prior to arrival to the ER. Patient's daughter reported the patient was complaining of mild URI symptoms the night prior for which she took Nyquil and Augmentin [left over from a nail infection]. Patient's continued to complain of some neck and throat pain throughout the day of admission and intermittent chest pain. The chest pain became significantly worse 1 hour [employer] and patient reported feeling like there wa s an "elephant on her chest". Patient rated the pain 10/10 and described it as a heavy weight in the middle of her chest radiating up her neck. She had associated nausea with no emesis and was diaphoretic. EMS was called and patient took 4 pills of baby ASA prior to coming to the ER. Complete ROS unobtainable secondary to patient condition. During hospital course, EKG showed anterior wall STEMI and code heart called. Patient taken to [employer] [facility] and had two JANE stents placed in the LAD. Patient started on aspirin and brilinta and instructed to take both for one year and patient agreed. Patient also started on lisinopril, coreg and statin. Echo revealed borderline LVH, moderate to severe reduced LV systolic function. Within 48 hours, patient developed afib and given digoxin and continued to have refractory afib with RVR and subsequently started on an amiodarone drip. Once HR was controlled, patient transitioned to amiodaron PO. Anticoagulation was not started due to transient afib. A1c and TSH were WNL. LFT's initially noted to be high following cardiac cath, but were downtrending throughout hospital course. Abd US showed hepatic steatosis, pancreatic tail obscured by gas. Patient agreed with discharge today and all questions were answered. Discharge Exam - Additional Findings Additional findings: - Constitutional Appears: No Acute Distress - Head Exam Head Exam: ATRAUMATIC, NORMAL INSPECTION - Eye Exam Eye Exam: EOMI Pupil Exam: PERRL - ENT Exam ENT Exam: Mucous Membranes Moist - Neck Exam Neck Exam: Normal Inspection - Respiratory Exam Respiratory Exam: Clear to Ausculation Bilateral. absent: Accessory Muscle Use, Wheezes, Respiratory Distress - Cardiovascular Exam Cardiovascular Exam: REGULAR RHYTHM, +S1, +S2. No tachycardia - GI/Abdominal Exam GI & Abdominal Exam: Soft, Normal Bowel Sounds. absent: Guarding, Tenderness - Extremities Exam Extremities Exam: Normal Inspection. absent: Calf Tenderness, Tenderness Additional comments: Right groin insertion site is clean, dry, non bleeding and no discoloration noted - Neurological Exam Neurological Exam: Alert, CN II-XII Intact, Oriented x3 Discharge Plan - Discharge Medications Prescriptions: RX: Amiodarone [Cordarone] 200 mg PO BID 30 Days #60 tab RX: Aspirin [Aspirin Chewable] 81 mg PO DAILY 30 Days #30 chew RX: Atorvastatin [Lipitor] 80 mg PO DIN 30 Days #30 tab RX: Carvedilol [Coreg] 12.5 mg PO BID 30 Days #60 tab RX: Lisinopril [Zestril] 5 mg PO DAILY 30 Days #30 tab RX: Ticagrelor [Brilinta] 90 mg PO BID 30 Days #60 tab - Follow Up Plan Condition: GUARDED Disposition: HOME/ ROUTINE Instructions: Coronary Angioplasty (DC), Myocardial Infarction (DC) Additional Instructions: Please follow up with manager style, Dr. Ayala within 5-7 days of discharge. Please follow up with your primary doctor, Dr. Barroso within 5-7 days of discharge. You have been started on two blood thinning medications called aspirin once a day and brilinta twice a day. Please do not miss any doese. You have been started on 3 blood pressure medications called lisinopril once a day, coreg twice a day, and amiodarone twice a day. You have been started on a medication for your cholesterol called lipitor once a day. You have been a scripts for all your medications, please get refills from your doctor. Please check your liver function test in one week with your primary doctor. Please check your pulmonary function test with your primary doctor. Please return to the ED for any new or worsening symptoms. Referrals: Brenda Fatima MD [Primary Care Provider] - Follow up with primary Richy Melgoza MD [Staff Provider] - <Santi Holm - Last Filed: 03/01/18 17:03> Provider - Provider Date of Admission: 02/24/18 22:58 Attending physician: Santi Holm MD Primary care physician: Brenda Barroso MD Consults: 02/24/18 23:03 Cardiology Consult Stat Comment: Consulting Provider: Richy Melgoza Consulting Physician: Richy Melgoza Reason for Consult: stemi Hospital Course - Lab Results Lab Results: Micro Results 02/25/18 00:25 Nose MRSA Culture (Admit) - Final MRSA NOT DETECTED Most Recent Lab Values WBC 6.7 10^3/uL (4.5-11.0) 03/01/18 06:30 RBC 4.05 10^6/uL (3.5-6.1) 03/01/18 06:30 Hgb 11.6 g/dL (12.0-16.0) L 03/01/18 06:30 Hct 35.5 % (36.0-48.0) L 03/01/18 06:30 MCV 87.7 fl (80.0-105.0) 03/01/18 06:30 MCH 28.6 pg (25.0-35.0) 03/01/18 06:30 MCHC 32.7 g/dl (31.0-37.0) 03/01/18 06:30 RDW 13.5 % (11.5-14.5) 03/01/18 06:30 Plt Count 208 10^3/uL (120.0-450.0) 03/01/18 06:30 MPV 10.3 fl (7.0-11.0) 03/01/18 06:30 Gran % 60.9 % (50.0-68.0) 03/01/18 06:30 Lymph % (Auto) 25.4 % (22.0-35.0) 03/01/18 06:30 [place] % (Auto) 11.7 % (1.0-6.0) H 03/01/18 06:30 Eos % (Auto) 1.7 % (1.5-5.0) 03/01/18 06:30 Baso % (Auto) 0.3 % (0.0-3.0) 03/01/18 06:30 Gran # 4.05 (1.4-6.5) 03/01/18 06:30 Lymph # (Auto) 1.7 (1.2-3.4) 03/01/18 06:30 [place] # (Auto) 0.8 (0.1-0.6) H 03/01/18 06:30 Eos # (Auto) 0.1 (0.0-0.7) 03/01/18 06:30 Baso # (Auto) 0.02 K/mm3 (0.0-2.0) 03/01/18 06:30 PT 10.8 SECONDS (9.4-12.5) 02/24/18 22:48 INR 0.95 02/24/18 22:48 Sodium 139 mmol/L (132-148) 03/01/18 06:30 Potassium 4.6 mmol/L (3.6-5.0) 03/01/18 06:30 Chloride 106 mmol/L (98-107) 03/01/18 06:30 Carbon Dioxide 31 mmol/L (21-33) 03/01/18 06:30 Anion Gap 7 (10-20) L 03/01/18 06:30 BUN 20 mg/dL (7-21) 03/01/18 06:30 Creatinine 1.0 mg/dl (0.7-1.2) 03/01/18 06:30 Est GFR ( Amer) > 60 03/01/18 06:30 Est GFR (Non-Af Amer) 55 03/01/18 06:30 Random Glucose 96 mg/dL (70-110) 03/01/18 06:30 Hemoglobin A1c 5.3 % (4.2-6.5) 02/25/18 05:25 Calcium 9.3 mg/dL (8.4-10.5) 03/01/18 06:30 Phosphorus 2.5 mg/dL (2.5-4.5) 02/26/18 05:20 Magnesium 2.2 mg/dL (1.7-2.2) 02/26/18 05:20 Total Bilirubin 1.1 mg/dL (0.2-1.3) 03/01/18 06:30 AST 69 U/L (14-36) H D 03/01/18 06:30 ALT 59 U/L (7-56) H 03/01/18 06:30 Alkaline Phosphatase 73 U/L (38-126) 03/01/18 06:30 Lactate Dehydrogenase 504 U/L (333-699) 02/24/18 22:48 Total Creatine Kinase 40 U/L (35-230) 02/24/18 22:48 Troponin I 17.60 ng/mL H* D 02/28/18 07:00 Total Protein 6.2 g/dL (5.8-8.3) 03/01/18 06:30 Albumin 3.4 g/dL (3.0-4.8) 03/01/18 06:30 Globulin 2.8 gm/dL 03/01/18 06:30 Albumin/Globulin Ratio 1.2 (1.1-1.8) 03/01/18 06:30 Triglycerides 224 mg/dL (35-160) H 02/25/18 05:25 Cholesterol 229 mg/dL (130-200) H 02/25/18 05:25 LDL Cholesterol Direct 132 mg/dL (0-129) H 02/25/18 05:25 HDL Cholesterol 46 mg/dL (29-60) 02/25/18 05:25 Free T4 1.09 ng/dL (0.78-2.19) 02/25/18 05:25 TSH 3rd Generation 1.01 mIU/mL (0.46-4.68) 02/25/18 05:25 Attending/Attestation - Attestation I have personally seen and examined this patient.: Yes I have fully participated in the care of the patient.: Yes I have reviewed all pertinent clinical information, including history, physical exam and plan: Yes Notes (Text): 03/01/18 17:01 Medical record note made by the resident after discussion with my direction and input after the patient was personally seen and examined by me. I have reviewed the chart and agree that the record accurately reflects by personal performance of the history, physical exam, data review, and medical decision-making, in the course for the patient. I have also personally directed the plan of care. 67yo female PMHx hypoglycemia and anxiety BIBA with complaint of chest pain for 1 day worsening 1 hour [employer]. In the ER patient's EKG revealed anterior wall MS with reciprocal changes. Code HEART called and patient was rushed to [employer]. Patient had 2 JANE placed in LAD. Patient ICU course was complicated by Transient episode of AF and VT.She was started on Amiodrone infusion followed by oral Amiodrone. Patient was also found to have elevated transaminase Continue ASA/Brilanta/Lisinopril and coreg.Statin therapy has been started as LFT are improved.This need to be followed as out patient a spatient is also on Amiodrone 200 mg PO BID Patient case was discussed with cardiology, no need for anticoagulation as AF was transient. Patient is ambulatory at the time of discharge. She will need repeat Echo in 3 month. Management plan was discussed in detail with patient. Education was provided.
--- NOTE | 2018-03-02 08:36 | PN ---
DATE: 03/01/2018 SUBJECTIVE: The patient seen lying down on telemetry. She is comfortable. She denies any chest pain. She has had no dysrhythmias overnight. She ambulated well yesterday. She is tolerating her current medications. MEDICATIONS: Include aspirin once daily, Brilinta 90 mg twice a day, amiodarone 200 mg twice a day, carvedilol 12.5 mg twice a day, Lipitor 80 mg daily, and Zestril 5 mg daily. OBJECTIVE: GENERAL: She is a middle-aged women, who is comfortable at rest. VITAL SIGNS: Blood pressure 118/64, pulse is 16 and sinus respiratory are 16. She is afebrile. HEENT: No JVD. CHEST: Clear to auscultation and percussion. HEART: Soft tones noted. ABDOMEN: Soft and nontender with bowel sounds. EXTREMITIES: No edema. IMPRESSION: 1. Recent anterior wall myocardial infarction complicated by congestive heart failure and ventricular dysrhythmias status post emergent percutaneous coronary intervention of left anterior descending. 2. Severe left ventricular systolic dysfunction. 3. Paroxysmal atrial fibrillation with no recurrence. 4. Hyperlipidemia. 5. Elevated transaminases felt secondary to shock liver, now improved. RECOMMENDATIONS: From a cardiac standpoint, she appears stable for discharge home at this time, status post myocardiac infarction restrictions were discussed with her. The need for compliance with medications was discussed as well. Closely outpatient followup will be arranged. Richy Melgoza MD MTDD
== END 2018-03-01 12:39 | disposition home or self-care (01) | DRG 246 ==
LOC: ED 22:38 → ERH 22:58 → ICU 02-25 00:22 → 2RNO 02-27 12:49
PROVIDERS: ADMIT Hospitalist; ATTEND Internal Medicine
PROC: 3E033PZ Introduction of Platelet Inhibitor into Peripheral Vein, Percutaneous Approach (ICD-10-PCS; 2018-02-24)
PROC: 027034Z Dilation of Coronary Artery, One Artery with Drug-eluting Intraluminal Device, Percutaneous Approach (ICD-10-PCS; principal; 2018-02-25)
PROC: B2111ZZ Fluoroscopy of Multiple Coronary Arteries using Low Osmolar Contrast (ICD-10-PCS; 2018-02-25)
PROC: B2151ZZ Fluoroscopy of Left Heart using Low Osmolar Contrast (ICD-10-PCS; 2018-02-25)
PROC: B41F1ZZ Fluoroscopy of Right Lower Extremity Arteries using Low Osmolar Contrast (ICD-10-PCS; 2018-02-25)
DX: I21.09 ST elevation (STEMI) myocardial infarction involving other coronary artery of anterior wall (principal); K72.00 Acute and subacute hepatic failure without coma; I47.2 Ventricular tachycardia; J98.11 Atelectasis; E78.5 Hyperlipidemia, unspecified; F41.0 Panic disorder [episodic paroxysmal anxiety]; I25.10 Atherosclerotic heart disease of native coronary artery without angina pectoris; I25.2 Old myocardial infarction; I48.0 Paroxysmal atrial fibrillation; I50.9 Heart failure, unspecified; K76.0 Fatty (change of) liver, not elsewhere classified; I07.1 Rheumatic tricuspid insufficiency; Z80.8 Family history of malignant neoplasm of other organs or systems; Z82.49 Family history of ischemic heart disease and other diseases of the circulatory system; Z87.891 Personal history of nicotine dependence; Z90.49 Acquired absence of other specified parts of digestive tract; E87.6 Hypokalemia